=== PATIENT | female | born 1970 | race Caucasian/White ===

== ENCOUNTER 2023-07-08 11:45 | Emergency (ER) | payer OTHER, SELFPAY ==
[2023-07-08 11:52] VITALS: BP 138/66; PULSE 84; RESP 20; TEMP 37.6; O2SAT 96; BMI 22.0
[2023-07-08 12:32] LABS: Influenza Virus A Antigen Negative; Influenza Virus B Antigen Negative; Internal Control Within Normal Limits; SARS-CoV-2 Ag NEGATIVE (NEGATIVE)
[2023-07-08] MEDS: ONDANSETRON 4 MG RAPDIS TABLET SL (13:12)
[2023-07-08] MEDS: KETOROLAC TROMETHAMINE 30 MG/ML VIAL IM (13:12)
--- NOTE | 2023-07-08 13:13 | ED.GENADUL1 ---
HPI - General Adult General Chief complaint: Upper Respiratory Infection Stated complaint: SHORTNESS OF BREATH Time Seen by Provider: 07/08/23 11:57 Source: patient Mode of arrival: walk-in Limitations: no limitations History of Present Illness HPI narrative: Patient is a 51-year-old female who is presenting to the ER today with flulike symptoms since yesterday. Patient has nausea with no vomiting. Patient has mild headache, bilateral paracervical neck pain, no chest pain, mild shortness of breath. Patient does smoke. Nausea, no vomiting, no diarrhea, mild abdominal discomfort. Myalgia, arthralgia, and patient stated that her son came home sick from school yesterday as well. Patient is not working today, she does not need a work note. No other acute complaints. Patient is taking nothing for pain today. All systems are negative except as noted/marked. All systems reviewed and otherwise negative. Nurses note and vital signs reviewed and patient is not hypoxic. General: The patient appears well and in no apparent distress. Patient is resting comfortably on cart. Patient is not toxic, lethargic, or listless Skin: Warm, dry, no pallor noted. There is no rash noted. No petechiae, purpura. Head: Normocephalic, atraumatic; no midline tenderness to palpation, patient has mild paracervical soft tissue tenderness palpation, no meningeal signs or symptoms. Patient has full range of motion of cervical spine with minimal pain. Eye: Normal conjunctiva, no drainage, EOMI. PERRL Ears, Nose, Mouth, and Throat: oral mucosa is moist. Bilateral TM shows no erythema, perforation or bulging. Patient does have clear drainage to the posterior pharynx, mild cobblestoning noted. Nares patent. Mouth without vesicles. Cardiovascular: Regular Rate and Rhythm, no murmur, gallop, rub Respiratory: Patient is in no distress, no accessory muscle use, lungs are clear to auscultation, no wheezing, rales or rhonchi Back: non-tender, no CVA tenderness bilaterally to percussion. No CT LS midline pain GI: no tenderness to palpation, no masses appreciated. No rebound, guarding, or rigidity noted. No distention. No midepigastric tenderness to palpation, no peritoneal signs. benign abdomen. Musculoskeletal: Patient has full range of motion of all of the extremities, no motor, sensory, or focal neurological deficits Neurological: A&O x4, normal speech Psychiatric: Cooperative Related Data Home Medications Medication Instructions Recorded Confirmed aspirin 81 mg tablet,delayed 81 mg PO DAILY 07/08/23 07/08/23 release atorvastatin 40 mg tablet 40 mg PO DAILY 07/08/23 07/08/23 cholecalciferol (vit D3) 137.5 mcg 1 tab PO DAILY 07/08/23 07/08/23 (5,500 unit)-vit K2 200 mcg tablet (DosoKap) clopidogrel 75 mg tablet 75 mg PO DAILY 07/08/23 07/08/23 duloxetine 60 mg capsule,delayed 60 mg PO DAILY 07/08/23 07/08/23 release levothyroxine 88 mcg tablet 88 mcg PO DAILY 07/08/23 07/08/23 magnesium oxide 400 mg (241.3 mg 400 mg PO BID 07/08/23 07/08/23 magnesium) tablet nitroglycerin 0.4 mg sublingual 0.4 mg sublingual Q5M 07/08/23 07/08/23 tablet pregabalin 50 mg capsule 50 mg PO BID 07/08/23 07/08/23 trazodone 150 mg tablet 150 mg PO BEDTIME PRN insomnia 07/08/23 07/08/23 Previous Rx's Medication Instructions Recorded ondansetron 4 mg disintegrating 4 mg PO Q4H PRN nausea and 07/08/23 tablet vomiting 3 days #6 tabs Allergies Allergy/AdvReac Type Severity Reaction Status Date / Time Penicillins Allergy Severe Verified 07/08/23 11:56 Exam Constitutional Vital Signs, click to edit/add: Last Vital Signs Temp 99.7 F 07/08/23 11:52 Pulse 84 07/08/23 11:52 Resp 20 07/08/23 11:52 BP 138/66 07/08/23 11:52 Pulse Ox 96 07/08/23 11:52 O2 Del Method Room Air 07/08/23 11:52 Course Vital Signs Vital signs: Vital Signs Temperature 99.7 F 07/08/23 11:52 Pulse Rate 84 07/08/23 11:52 Respiratory Rate 20 07/08/23 11:52 Blood Pressure 138/66 07/08/23 11:52 Pulse Oximetry 96 07/08/23 11:52 Oxygen Delivery Method Room Air 02/28/24 11:52 Temperature 99.7 F 07/08/23 11:52 Pulse Rate 84 07/08/23 11:52 Respiratory Rate 20 07/08/23 11:52 Blood Pressure 138/66 07/08/23 11:52 Pulse Oximetry 96 07/08/23 11:52 Oxygen Delivery Method Room Air 07/08/23 11:52 Medical Decision Making MDM Narrative Medical decision making narrative: Education was done at bedside and the appropriate use of antibiotics. Patient says that she has a sinus infection, does not feel well, and believes that she needs antibiotics. Patient was educated on the viral process as well of infections. Influenza and COVID were negative. Patient was given a Zofran in the ER along with Toradol injection. Patient was sent with a prescription for Zofran. Patient is to follow-up with PCP if no improvement in next 7 to 10 days for reevaluation at that time. No indication for antibiotics. Education and symptomatic treatment was done. No questions at discharge Lab Data Labs: Lab Results 07/08/23 Range/Units 12:00 Influenza Type A Ag Negative Influenza Type B Ag Negative SARS-CoV-2 Ag (CV2AG) Negative (NEGATIVE) Discharge Plan Discharge Chief Complaint: Upper Respiratory Infection Clinical Impression: Sinus congestion, Flu-like symptoms Patient Disposition: Home, Self-Care Time of Disposition Decision: 13:00 Condition: Fair Prescriptions / Home Meds: New ondansetron 4 mg tablet,disintegrating 4 mg PO Q4H PRN (Reason: nausea and vomiting) 3 Days Qty: 6 0RF No Action aspirin 81 mg tablet,delayed release (DR/EC) 81 mg PO DAILY atorvastatin 40 mg tablet 40 mg PO DAILY DosoKap 137.5-200 mcg tablet 1 tab PO DAILY clopidogrel 75 mg tablet 75 mg PO DAILY duloxetine 60 mg capsule,delayed release(DR/EC) 60 mg PO DAILY levothyroxine 88 mcg tablet 88 mcg PO DAILY nitroglycerin 0.4 mg tablet, sublingual 0.4 mg sublingual Q5M pregabalin 50 mg capsule 50 mg PO BID trazodone 150 mg tablet 150 mg PO BEDTIME PRN (Reason: insomnia) magnesium oxide 400 mg (241.3 mg magnesium) tablet 400 mg PO BID Instructions: Influenza (ED), Cold Symptoms (ED) Additional Instructions: Increase fluids at home, Gatorade, Powerade, or water. Alternate using DayQuil, NyQuil, and Flonase. At Mucinex as well as needed. Alternate Tylenol and Motrin every 4 hours to help with fever control, body aches or joint pain. Use [id number] vitamin C, vitamin D3, and zinc to help fight infection and help with her immune system. Use Zofran as needed for nausea to help increase fluids at home Stand Alone Forms: Portal Instructions Referrals: MORENA TREJO [Primary Care Provider] - 1 week
== END 2023-07-08 13:20 | disposition home or self-care (01) ==
PROVIDERS: Emergency Provider Emergency Medicine; PCP Family Medicine
DX: R06.02 Shortness of breath (principal); R09.81 Nasal congestion; R11.0 Nausea; R51.9 Headache, unspecified; M54.2 Cervicalgia; F17.210 Nicotine dependence, cigarettes, uncomplicated; M79.10 Myalgia, unspecified site; M25.50 Pain in unspecified joint; Z79.82 Long term (current) use of aspirin; Z79.890 Hormone replacement therapy; Z79.899 Other long term (current) drug therapy; Z20.822 Contact with and (suspected) exposure to COVID-19
CPT/HCPCS: 87804; 87811; 96372; 99284

== ENCOUNTER 2023-08-14 15:37 | Emergency (ER) | payer OTHER, SELFPAY ==
[2023-08-14 15:40] VITALS: BP 150/70; PULSE 72; TEMP 37; O2SAT 97
[2023-08-14 15:47] VITALS: O2SAT 97
[2023-08-14] MEDS: KETOROLAC TROMETHAMINE 60 MG/2 ML VIAL IM (16:18)
[2023-08-14] MEDS: ORPHENADRINE 60 MG/ 2 ML VIAL IM (16:19)
--- NOTE | 2023-08-14 16:21 | ED_ITS ---
Documented by User: Kandis Langey 08/14/23 17:55 HPI HPI - Back Pain/Injury General Chief Complaint: Back Pain/Injury Stated Complaint: Lower Back Pain Time Seen by Provider: 08/14/23 15:43 Source: patient Mode of arrival: walk-in Limitations: no limitations History of Present Illness HPI Narrative: 52-year-old female presents here with chief complaint of lower lumbar pain. She denies any injury or trauma. She states she has bilateral tenderness but complains of some radiation down the right lower extremity. She is currently being treated for walking pneumonia and on erythromycin. She states she has been laying around more than usual because she has been ill. Patient has no pain on examination. She has no focal weakness. She denies any urinary sym ptoms. She denies any burning with urination she denies any loss of bowel or bladder function. Related Data Home Medications ?Medication ?Instructions ?Recorded ?Confirmed aspirin 81 mg tablet,delayed 81 mg PO DAILY 07/08/23 08/14/23 release atorvastatin 40 mg tablet 40 mg PO DAILY 07/08/23 08/14/23 cholecalciferol (vit D3) 137.5 mcg 1 tab PO DAILY 07/08/23 08/14/23 (5,500 unit)-vit K2 200 mcg tablet (DosoKap) clopidogrel 75 mg tablet 75 mg PO DAILY 07/08/23 08/14/23 duloxetine 60 mg capsule,delayed 60 mg PO DAILY 07/08/23 08/14/23 release levothyroxine 88 mcg tablet 88 mcg PO DAILY 07/08/23 08/14/23 magnesium oxide 400 mg (241.3 mg 400 mg PO BID 07/08/23 08/14/23 magnesium) tablet nitroglycerin 0.4 mg sublingual 0.4 mg sublingual Q5M 07/08/23 08/14/23 tablet pregabalin 50 mg capsule 50 mg PO BID 07/08/23 08/14/23 trazodone 150 mg tablet 150 mg PO BEDTIME PRN insomnia 07/08/23 08/14/23 Previous Rx's ?Medication ?Instructions ?Recorded ondansetron 4 mg disintegrating 4 mg PO Q4H PRN nausea and 07/08/23 tablet vomiting 3 days #6 tabs albuterol sulfate 90 mcg/actuation 2 inh inhalation Q8H PRN shortness 04/05/24 aerosol inhaler of breath or wheezing #8.5 grams methocarbamol 500 mg tablet 500 mg PO TID PRN muscle spasm #10 08/14/23 tabs Allergies Allergy/AdvReac Type Severity Reaction Status Date / Time Penicillins Allergy Severe Verified 07/08/23 11:56 Opioid HPI Opioid Management Most Recent Opioid Data: Last Pain Scale 2 08/14/23 16:47 Last ED Pain Assessment 08/14/23 16:47 Last MAR Pain Assessment 08/14/23 16:18 Review of Systems ROS Narrative All Systems are negative except as noted/marked.All systems reviewed and otherwise negative Exam Narrative Exam Narrative: Nurses note and vital signs reviewed and patient is not hypoxic. General: The patient appears well and in no apparent distress. Patient is resting comfortably on cart. Skin: Warm, dry, no pallor noted. There is no rash noted. Head: Normocephalic, atraumatic Eye: Normal conjunctiva, no drainage, EOMI. PERRL Ears, Nose, Mouth, and Throat: oral mucosa is moist. Nares patent. Mouth without vesicles. Ear canals patent. Tm's without Erythema Cardiovascular: Regular Rate and Rhythm Respiratory: Scattered expiratory wheezing, rhonchi cleared with cough,Patient is in no distress, no accessory muscle use Back: non-tender, no CVA tenderness bilaterally to percussion. GI: Normal bowel sounds, no tenderness to palpation, no masses appreciated. No rebound, guarding, or rigidity noted. Musculoskeletal: The patient has no evidence of calf tenderness, no pitting edema, symmetrical pulses noted bilaterally Neurological: A&O x4, normal speech Psychiatric: Cooperative Constitutional Vital Signs, click to edit/add: Last Vital Signs Temp 98.6 F 08/14/23 15:40 Pulse 67 08/14/23 18:07 Resp 16 08/14/23 18:07 BP 153/69 H 08/14/23 18:07 Pulse Ox 96 08/14/23 18:07 O2 Del Method Room Air 08/14/23 18:07 Course Vital Signs Vital signs: Vital Signs Temperature 98.6 F 08/14/23 15:40 Pulse Rate 72 08/14/23 15:40 Respiratory Rate 18 08/14/23 15:40 Blood Pressure 150/70 H 08/14/23 15:40 Pulse Oximetry 97 08/14/23 15:40 Temperature 98.6 F 08/14/23 15:40 Pulse Rate 67 08/14/23 18:07 Respiratory Rate 16 08/14/23 18:07 Blood Pressure 153/69 H 08/14/23 18:07 Pulse Oximetry 96 08/14/23 18:07 Oxygen Delivery Method Room Air 08/14/23 18:07 MDM - Back Pain/Injury MDM Narrative Medical decision making narrative: Female presents here with chief complaint of lower lumbar pain. She states she has been at home with walking pneumonia and taking antibiotics been laying around more than usual. No other injury or trauma. She feels a soreness and stiffness in lower back. Medicated here with Toradol and Norflex states she feels much better. Patient also has a history of smoking and lung sounds had scattered crackles and rhonchi cleared with coughing. She was medicated here with a DuoNeb breathing treatment states she feels much better. Patient is recently run out of her albuterol inhaler we will provide her a new inhaler. She will be discharged home with a prescription for Well. Patient states she does feel better and will be discharged Differential Diagnosis Differential diagnosis: Likely lumbar radiculopathy and strain of lumbar region Medical Records Attestation: I reviewed the patient's medical records. Lab Data Attestation: I reviewed the patient's lab results. Labs: Lab Results 08/14/23 Range/Units 16:48 Urine Color Lt. yellow (YELLOW) Urine Clarity Clear (CLEAR) Urine pH 6.0 (5.0-9.0) Ur Specific [place] <=1.005 A (1.005-1.025) Urine Protein Negative (NEG/TRACE) mg/dL Urine Glucose (UA) Negative (NEGATIVE) mg/dL Urine Ketones Negative (NEGATIVE) mg/dL Urine Occult Blood Negative (NEGATIVE) Urine Nitrite Negative (NEGATIVE) Urine Bilirubin Negative (NEGATIVE) Urine Urobilinogen 0.2 (0.2-1.0) EU/dL Ur Leukocyte Esterase Negative (NEGATIVE) Urine RBC None seen (0-2) #/HPF Urine WBC None seen (NONE SEEN) #/HPF Ur Squamous Epith Cells Few A (NONE/RARE) #/LPF Urine Crystals None seen (None Seen) #/HPF Urine Bacteria Trace A (NONE SEEN) #/HPF Urine Casts None seen (NONE SEEN) #/LPF Urine Mucus None seen (NONE SEEN) Discharge Plan Discharge Stand Alone Forms: Portal Instructions Chief Complaint: Back Pain/Injury Clinical Impression: Strain of lumbar region, Wheezing Patient Disposition: Home, Self-Care Time of Disposition Decision: 17:51 Condition: Good Prescriptions / Home Meds: New methocarbamol 500 mg tablet 500 mg PO TID PRN (Reason: muscle spasm) Qty: 10 0RF albuterol sulfate 90 mcg/actuation HFA aerosol inhaler 2 inh inhalation Q8H PRN (Reason: shortness of breath or wheezing) Qty: 8.5 0RF No Action aspirin 81 mg tablet,delayed release (DR/EC) 81 mg PO DAILY atorvastatin 40 mg tablet 40 mg PO DAILY DosoKap 137.5-200 mcg tablet 1 tab PO DAILY clopidogrel 75 mg tablet 75 mg PO DAILY duloxetine 60 mg capsule,delayed release(DR/EC) 60 mg PO DAILY levothyroxine 88 mcg tablet 88 mcg PO DAILY nitroglycerin 0.4 mg tablet, sublingual 0.4 mg sublingual Q5M pregabalin 50 mg capsule 50 mg PO BID trazodone 150 mg tablet 150 mg PO BEDTIME PRN (Reason: insomnia) magnesium oxide 400 mg (241.3 mg magnesium) tablet 400 mg PO BID ondansetron 4 mg tablet,disintegrating 4 mg PO Q4H PRN (Reason: nausea and vomiting) 3 Days Qty: 6 0RF Print Language: Korean Instructions: Low Back Strain (ED), Lower Back Exercises (ED), Wheezing (ED) Referrals: MORENA TREJO [Primary Care Provider] - 1 week Discharge Date/Time: 08/14/23 18:08 Documented by User: Atul Phelps MD 08/14/23 21:52 HPI HPI - Back Pain/Injury General Chief Complaint: Back Pain/Injury Stated Complaint: Lower Back Pain Time Seen by Provider: 08/14/23 15:43 Related Data Home Medications ?Medication ?Instructions ?Recorded ?Confirmed aspirin 81 mg tablet,delayed 81 mg PO DAILY 07/08/23 08/14/23 release atorvastatin 40 mg tablet 40 mg PO DAILY 07/08/23 08/14/23 cholecalciferol (vit D3) 137.5 mcg 1 tab PO DAILY 07/08/23 08/14/23 (5,500 unit)-vit K2 200 mcg tablet (DosoKap) clopidogrel 75 mg tablet 75 mg PO DAILY 07/08/23 08/14/23 duloxetine 60 mg capsule,delayed 60 mg PO DAILY 07/08/23 08/14/23 release levothyroxine 88 mcg tablet 88 mcg PO DAILY 07/08/23 08/14/23 magnesium oxide 400 mg (241.3 mg 400 mg PO BID 07/08/23 08/14/23 magnesium) tablet nitroglycerin 0.4 mg sublingual 0.4 mg sublingual Q5M 07/08/23 08/14/23 tablet pregabalin 50 mg capsule 50 mg PO BID 07/08/23 08/14/23 trazodone 150 mg tablet 150 mg PO BEDTIME PRN insomnia 07/08/23 08/14/23 Previous Rx's ?Medication ?Instructions ?Recorded ondansetron 4 mg disintegrating 4 mg PO Q4H PRN nausea and 07/08/23 tablet vomiting 3 days #6 tabs albuterol sulfate 90 mcg/actuation 2 inh inhalation Q8H PRN shortness 08/14/23 aerosol inhaler of breath or wheezing #8.5 grams methocarbamol 500 mg tablet 500 mg PO TID PRN muscle spasm #10 08/14/23 tabs Allergies Allergy/AdvReac Type Severity Reaction Status Date / Time Penicillins Allergy Severe Verified 07/08/23 11:56 Opioid HPI Opioid Management Most Recent Opioid Data: Last Pain Scale 2 08/14/23 16:47 Last ED Pain Assessment 08/14/23 16:47 Last MAR Pain Assessment 08/14/23 16:18 Exam Constitutional Vital Signs, click to edit/add: Last Vital Signs Temp 98.6 F 08/14/23 15:40 Pulse 67 08/14/23 18:07 Resp 16 08/14/23 18:07 BP 153/69 H 08/14/23 18:07 Pulse Ox 96 08/14/23 18:07 O2 Del Method Room Air 08/14/23 18:07 Course Vital Signs Vital signs: Vital Signs Temperature 98.6 F 08/14/23 15:40 Pulse Rate 72 08/14/23 15:40 Respiratory Rate 18 08/14/23 15:40 Blood Pressure 150/70 H 08/14/23 15:40 Pulse Oximetry 97 08/14/23 15:40 Temperature 98.6 F 08/14/23 15:40 Pulse Rate 67 08/14/23 18:07 Respiratory Rate 16 08/14/23 18:07 Blood Pressure 153/69 H 08/14/23 18:07 Pulse Oximetry 96 08/14/23 18:07 Oxygen Delivery Method Room Air 08/14/23 18:07 MDM - Back Pain/Injury MDM Narrative Medical decision making narrative: Female presents here with chief complaint of lower lumbar pain. She states she has been at home with walking pneumonia and taking antibiotics been laying around more than usual. No other injury or trauma. She feels a soreness and stiffness in lower back. Medicated here with Toradol and Norflex states she feels much better. Patient also has a history of smoking and lung sounds had scattered crackles and rhonchi cleared with coughing. She was medicated here with a DuoNeb breathing treatment states she feels much better. Patient is recently run out of her albuterol inhaler we will provide her a new inhaler. She will be discharged home with a prescription for Well. Patient states she does feel better and will be discharged I, Dr Phelps, have reviewed the above progress note and course of action in the ER; agree with the above. I have gone over history and physical, and discussed disposition and treatment plan with the patient. Lab Data Labs: Lab Results 08/14/23 Range/Units 16:48 Urine Color Lt. yellow (YELLOW) Urine Clarity Clear (CLEAR) Urine pH 6.0 (5.0-9.0) Ur Specific [place] <=1.005 A (1.005-1.025) Urine Protein Negative (NEG/TRACE) mg/dL Urine Glucose (UA) Negative (NEGATIVE) mg/dL Urine Ketones Negative (NEGATIVE) mg/dL Urine Occult Blood Negative (NEGATIVE) Urine Nitrite Negative (NEGATIVE) Urine Bilirubin Negative (NEGATIVE) Urine Urobilinogen 0.2 (0.2-1.0) EU/dL Ur Leukocyte Esterase Negative (NEGATIVE) Urine RBC None seen (0-2) #/HPF Urine WBC None seen (NONE SEEN) #/HPF Ur Squamous Epith Cells Few A (NONE/RARE) #/LPF Urine Crystals None seen (None Seen) #/HPF Urine Bacteria Trace A (NONE SEEN) #/HPF Urine Casts None seen (NONE SEEN) #/LPF Urine Mucus None seen (NONE SEEN) Discharge Plan Discharge Stand Alone Forms: Portal Instructions Chief Complaint: Back Pain/Injury Clinical Impression: Strain of lumbar region, Wheezing Patient Disposition: Home, Self-Care Time of Disposition Decision: 17:51 Condition: Good Prescriptions / Home Meds: New methocarbamol 500 mg tablet 500 mg PO TID PRN (Reason: muscle spasm) Qty: 10 0RF albuterol sulfate 90 mcg/actuation HFA aerosol inhaler 2 inh inhalation Q8H PRN (Reason: shortness of breath or wheezing) Qty: 8.5 0RF No Action aspirin 81 mg tablet,delayed release (DR/EC) 81 mg PO DAILY atorvastatin 40 mg tablet 40 mg PO DAILY DosoKap 137.5-200 mcg tablet 1 tab PO DAILY clopidogrel 75 mg tablet 75 mg PO DAILY duloxetine 60 mg capsule,delayed release(DR/EC) 60 mg PO DAILY levothyroxine 88 mcg tablet 88 mcg PO DAILY nitroglycerin 0.4 mg tablet, sublingual 0.4 mg sublingual Q5M pregabalin 50 mg capsule 50 mg PO BID trazodone 150 mg tablet 150 mg PO BEDTIME PRN (Reason: insomnia) magnesium oxide 400 mg (241.3 mg magnesium) tablet 400 mg PO BID ondansetron 4 mg tablet,disintegrating 4 mg PO Q4H PRN (Reason: nausea and vomiting) 3 Days Qty: 6 0RF Print Language: Korean Instructions: Low Back Strain (ED), Lower Back Exercises (ED), Wheezing (ED) Referrals: MORENA TREJO [Primary Care Provider] - 1 week Discharge Date/Time: 08/14/23 18:08
[2023-08-14] MEDS: IPRATROPIUM/ALBUTEROL SULFATE 3 ML AMPUL.NEB IH (16:25)
[2023-08-14 16:26] VITALS: PULSE 89; O2SAT 98
[2023-08-14 17:09] LABS: Bilirubin Urine NEGATIVE (NEGATIVE); Blood Urine NEGATIVE (NEGATIVE); Clarity Urine CLEAR (CLEAR); Color Urine LT. YELLOW (YELLOW); Glucose Urine UA NEGATIVE (NEGATIVE); Ketones Urine NEGATIVE (NEGATIVE); Leukocyte Esterase Urine NEGATIVE (NEGATIVE); Nitrite Urine NEGATIVE (NEGATIVE); Protein Urine NEGATIVE (NEG/TRACE); Specific Gravity Urine <=1.005 (1.005-1.025); Urobilinogen Urine 0.2 EU/dL (0.2-1.0)
[2023-08-14 17:35] LABS: Bacteria Urine TRACE #/HPF (NONE SEEN); Cast Seen? NONE SEEN #/LPF (NONE SEEN); Crystals Seen? None Seen #/HPF (None Seen); Mucus Urine NONE SEEN (NONE SEEN); RBC Urine NONE SEEN #/HPF (0-2); Squamous Epithelial Cell Urine FEW #/LPF (NONE/RARE); WBC Urine NONE SEEN #/HPF (NONE SEEN)
[2023-08-14 18:07] VITALS: BP 153/69; PULSE 67; O2SAT 96
== END 2023-08-14 18:08 | disposition home or self-care (01) ==
PROVIDERS: Physician Assistant; Emergency Provider Emergency Medicine; PCP Family Medicine
DX: S39.012A Strain of muscle, fascia and tendon of lower back, initial encounter (principal); R06.2 Wheezing; Z79.82 Long term (current) use of aspirin; Z79.899 Other long term (current) drug therapy; Z79.890 Hormone replacement therapy
CPT/HCPCS: 81001; 94640; 96372; 99284

== ENCOUNTER 2025-02-06 10:08 | Outpatient (OUT) | payer OTHER, SELFPAY ==
--- OUTSIDE RECORDS SUMMARY | 2024-03-07 12:30 | XMS_ITS ---
Author Organization [facility] vices Address [address] [place] [id number] Care Team Providers Care Insurance Rater Name Role Phone Josiseth Sheila Unavailable [phone] REASON FOR VISIT [employer] Exam Encounters Encounter Location Date Provider Diagnosis [facility] [address] [place], [place] [id number] 03/07/2024 Sheila Barnhart Plan Of Treatment No Information Progress Notes * Sharon ABELeDOB: 0 (54 yo F)Acc No.[id number]:03/07/2024 Patient: Eleonora LEMUS Provider: Isaura Barnhart DMD :1970 A ge:53 Y S ex:Female Date:03/07/2024 Address:[address] [place], [place] [id number] Subjective: * Chief Complaints: * 1 . [employer] Exam. * Medical History: Objective: * Vitals: Assessment: Plan: * Treatment: * Billing Information: * Visit Code: * Procedure Codes: * Electronic signature of Liliana Barnhart DMD on 02/06/2025 at 10:11 AM EDT Sign off status: Pending * Provider: Isaura Barnhart DMD Date: 1 Generated for Tanna martinez/Savanna/Serafinitting on: 0 02/06/2025 10:11 AM EDT
--- OUTSIDE RECORDS SUMMARY | 2025-02-06 10:11 | XMS_ITS | Encounter Summary ---
Author Organization [facility] Address [address] [place] [address] Phone Care Team Providers Care Second Hand Name Role Phone Levi Arguello DO Primary Care Provider [phone] Eleonora Chung MD Unavailable Encounter Details Date Type Department Care Team (Late st Contact Info) Description 04/08/2024 Scanned Document [facility] [address] [place] [id number] Scanning, Generic Provider Social History Tobacco Use Types Packs/Day Years Used Date Smoking Tobacco: Every Day Cigarettes Smokeless Tobacco: Never Comments:She cannot tolerate Chantix. She does not believe that NicoDerm patch will help her abstain from cigarettes, she looks at it as a crutch, and I can see where she says that. We talked about hypnosis and acupuncture, and she will check into those options. Alcohol Use Standard Drinks/Week Comments Never 0 (1 standard drink = 0.6 oz pur e alcohol) PHQ-2 Answer Date Recorded Patient Health Questionnaire-2 Score 6 12/19/2021 Comments Unknown Sex and Gender Information Value Date Recorded Sex Assigned at Not on file Legal Sex Female 1:18 PM EST Gender Identity Female 07/05/2024 9:45 AM EST Sexual Orientation Straight 07/05/2024 9: 45 AM EST documented as of this encounter Plan of Treatment Not on file documented as of this encounter Visit Diagnoses Not on filedocumented in this encounter Additional Health Concerns Assessment Noted Time PHQ-9 Depression Total Score: 19 022 10:16 AM EDT documented as of this encounter Care Teams Second Hand Relationship Specialty Start Date End Date Levi Arguello DO [address] [place] [address] PCP - General Family Medicine 06/04/23 Eleonora Chung MD [address] [address] PCP - Constanza BARON PCP 08/09/24 documented as of this encounter
--- OUTSIDE RECORDS SUMMARY | 2025-02-06 10:11 | XMS_ITS | Encounter Summary ---
Author Organization [facility] Address [address] [place] [address] Phone Care Team Providers Care Utility Inspector Name Role Phone Levi Arguello Primary Care Provider [phone] Eleonora Chung MD Unavailable Encounter Details Date Type Department Care Team (Late st Contact Info) Description 12/11/2024 Patient Risk Score ACO Care Management [address] [place] [address] Social History Tobacco Use Types Packs/Day Years [...] documented as of this encounter Care Teams Utility Inspector Relationship Specialty Start Date End Date Levi Arguello DO [address] [place] [address] PCP - General Family Medicine 06/04/23 Eleonora Chung MD [address] [address] PCP - Constanza BARON PCP 08/09/24 documented as of this encounter
--- OUTSIDE RECORDS SUMMARY | 2025-02-06 10:11 | XMS_ITS | Encounter Summary ---
Author Organization [facility] Address [address] [place] [address] Phone Care Team Providers Care Yarder Name Role Phone Levi Arguello DO Primary Care Provider [phone] Eelonora Chung MD Unavailable Eleonora Chung MD Unavailable Encounter Details Date Type Department Care Team (Late st Contact Info) Description 11/12/2023 Patient Risk Score ACO Care Management [address] [place] [address] Social History Tobacco Use Types [...] documented as of this encounter Care Teams Yarder Relationship Specialty Start [place] [address] [place] [address] PCP - General Family Medicine 06/04/23 Eleonora Chung MD [address] [address] PCP - DENTAL RESIDENT Medicaid PCP 11/09/23 4 Eleonora Chung MD [address] [address] PCP - Krissoendy ACO PCP 08/09/24 documented as of this encounter
--- OUTSIDE RECORDS SUMMARY | 2025-02-06 10:11 | XMS_ITS | Encounter Summary ---
Author Organization [facility] Address [address] [place] [address] Phone Care Team Providers Care Rotary Machine Operator Name Role Phone Levi Arguello DO Primary Care Provider [phone] Eleonora Chung MD Unavailable Eleonora Chung MD Unavailable Eleonora Chung MD Unavailable Encounter Details Date Type Department Care Team (Late st Contact Info) Description 09/12/2023 Patient Risk Score ACO Care Management [address] [place] [address] Social History Tobacco Use Types [...] documented as of this encounter Care Teams Rotary Machine Operator Relationship Specialty Start Date End Date Levi Arguello DO [address] [place] [address] PCP - General Family Medicine 06/04/23 Eleonora Chung MD [address] [place] [address] PCP - [facility] PCP 05/11/2310/08 Eleonora Chung MD [address] [place] [address] [facility] - [facility] Medicaid PCP 11/09/23 4 Eleonora Chung MD [address] [place] [address] PCP - [place] PCP 08/09/24 documented as of this encounter
--- OUTSIDE RECORDS SUMMARY | 2025-02-06 10:11 | XMS_ITS | Clinical Summary ---
Author Organization [facility] Healthcare Address [address] [place] [address] Care Team Providers Care Cable Installation Manager Name Role Phone Levi Arguello MD Primary Care Provider [phone] Allergies Active Allergy Reactions Criticality Noted Date Comments Penicillins Unknown 10/12/2017 Other Reaction(s): Rash As a child Medications atorvastatin (Lipitor) 40 MG tablet Take 40 mg by mouth in the morning. 06/06/2024 06/06/19 26 Active aspirin 81 MG EC tablet Take 81 mg by mouth in the morning. 09/10/2023 Active cetirizine (ZyrTEC) 10 MG tablet Daily as needed for allergy symptoms 04/08/2024 Active clopidogrel (Plavix) 75 MG tablet Daily 04/08/2024 Active DULoxetine (Cymbalta) [address] capsule Take 60 mg by mouth in the morning. 04/08/2024 Active levothyroxine (Synthroid, Levoxyl) 88 MCG tablet Take 88 mcg by mouth in the morning. Active magnesium oxide (Mag-Ox) 400 MG tablet Take 400 mg by mouth in the morning and 400 mg in the evening. 06/06/2024 06/06/19 26 Active nitroglycerin (Nitrostat) 0.[address] 0.4 mg under the tongue 06/06/2024 06/06/19 26 Active valACYclovir (Valtrex) 500 MG tablet 06/06/2024 Active Active Problems Problem Noted Date Diagnosed Date Acute right otitis media 06/20/2024 Anxiety 06/20/2024 Bronchitis 06/20/2024 Carpal tunnel syndrome 06/20/2024 Chest pain 06/20/2024 Coronary angioplasty status 06/20/2024 Cubital tunnel syndrome on right 06/20/2024 Depression 06/20/2024 Ear pain 06/20/2024 Eustachian tube dysfunction 06/20/2024 Heart disease 06/20/2024 Asthma 06/20/2024 Lumbar pain 06/20/2024 Nausea 06/20/2024 Osteoarthritis 06/20/2024 Racing heart beat 06/20/2024 Sacroiliitis 06/20/2024 Sciatica 06/20/2024 Sinusitis 06/20/2024 Unstable angina 06/20/2024 Thyroid disease 06/20/2024 BMI 24.0-24.9, adult 06/06/2024 Chronotropic incompetence 06/06/2024 Encounter to discuss test results 06/04/2023 Palpitations 04/06/2023 Current smoker 04/06/2023 Arteriosclerosis of coronary artery 03/17/2023 COVID-19 03/17/2023 History of PTCA 03/17/2023 Hyperlipidemia 03/17/2023 SOB (shortness of breath) on exertion 03/17/2023 Family History Medical History Relation Name Comments Cancer Father Heart failure Father Hypertension Father Relation Name Status Comments Father Social History Tobacco Use Types Packs/Day Years Used Date Smoking Tobacco: Every Day Cigarettes Passive Smoke Exposure: Current Smokeless Tobacco: Never Tobacco Cessation:Ready to Q uit: Not Asked; Counseling Given: Not Answered Alcohol Use Standard Drinks/Week Comments Not Currently 0 (1 standard drink = 0.6 oz pur e alcohol) Comments Unknown Sex and Gender Information Value Date Recorded Sex Assigned at Not on file Legal Sex Female 7:11 PM EDT Gender Identity Not on file Sexual Orientation Not on file Last Filed Vital Signs Vital Sign Reading Time Taken Comments Blood Pressure 125/73 06/21/2024 10:26 AM EST Pulse 82 06/21/2024 10:26 AM EST Temperature - - Respiratory Rate - - Oxygen Saturation - - Inhaled Oxygen Concentration - - Weight 74.8 kg (165 lb) 06/21/2024 10:26 AM EST Height 172.7 cm (5' 8 ) 06/21/2024 10:26 AM EST Body Mass Index 25.09 06/21/2024 10:26 AM EST Plan of Treatment Health Maintenance Due Date Last Done Comments CT Colonography 1969 Colonoscopy 1969 Colorectal Cancer Screening 1969 FIT-DNA 1969 FIT 1969 FOBT 1969 Sigmoidoscopy 1969 Pap Smear 1990 Cervical Cancer Screening 12/04/1999 HPV/Cotest 12/04/1999 Mammogram 2009 Influenza Vaccine (#1) 2025 04/15/2024 Insurance [employer] Care Teams Cable Installation Manager Relationship Specialty Start Date End Date Levi Arguello MD PCP - General Family Medicine 06/10/24
--- OUTSIDE RECORDS SUMMARY | 2025-02-06 10:11 | XMS_ITS | Encounter Summary ---
Author Organization [facility] Address [address] [place] [address] Phone Care Team Providers Care Lamination Assembler Name Role Phone Levi Arguello DO Primary Care Provider [phone] Eleonora Chung MD Unavailable Levi Arguello DO Primary Care Provider [phone] Eleonora Chung MD Unavailable Eleonora Chung MD Unavailable Eleonora Chung MD Unavailable Encounter Details Date Type Department Care Team (Late st Contact Info) Description 07/17/2021 Orders Only [facility] [address] [place] [address] Conversion, Onbase Social History Tobacco Use Types Packs/Day Years Used Date Smoking Tobacco: Never Assessed Comments Unknown Sex and Gender Information Value Date Recorded Sex Assigned at Not on file Legal Sex Female 1:18 PM EST Gender Identity Female 07/05/2024 9:45 AM EST Sexual Orientation Straight 07/05/2024 9: 45 AM EST documented as of this encounter Plan of Treatment Scheduled Orders Name Type Priority Associated Diagnoses Orde r Schedule OUTSIDE LAB SCAN Lab Ordered: 07/17/2021 OUTSIDE LAB SCAN Lab Ordered: 07/17/2021 documented as of this encounter Visit Diagnoses Not on filedocumented in this encounter Care Teams Lamination Assembler Relationship Specialty Start Date End Date Levi Arguello DO PCP - General 05/11/99 06/03/23 Eleonora Chung MD [address] [place] [id number] PCP - [facility] Medicaid PCP 11/08/22 3 Levi Arguello DO [address] [place] [address] PCP - General Family Medicine 06/04/23 Eleonora Chung MD [address] [place] [address] PCP - [facility] PCP 05/11/2310/08 Eleonora Chung MD [address] [place] [address] PCP - [facility] Medicaid PCP 11/09/23 4 Eleonora Chung MD [address] [place] [address] PCP - [facility] PCP 08/09/24 documented as of this encounter
--- OUTSIDE RECORDS SUMMARY | 2025-02-06 10:11 | XMS_ITS | Encounter Summary ---
Author Organization [facility] Address [address] [place] [address] Phone Care Team Providers Care Materials Analyst Name Role Phone Levi Arguello Primary Care Provider [phone] Eleonora Chung MD Unavailable Encounter Details Date Type Department Care Team (Late st Contact Info) Description 11/11/2024 Patient Risk Score ACO Care Management [address] [place] [address] Social History Tobacco Use Types [...] documented as of this encounter Care Teams Materials Analyst Relationship Specialty Start Date End Date Levi Arguello DO [address] [place] [address] PCP - General Family Medicine 06/04/23 Eleonora Chung MD [address] [address] PCP - [facility] PCP 08/09/24 documented as of this encounter
--- OUTSIDE RECORDS SUMMARY | 2025-02-06 10:11 | XMS_ITS | Encounter Summary ---
Author Organization [facility] Address [address] [place] [address] Phone Care Team Providers Care Health Information Specialist Name Role Phone Levi Arguello DO Primary Care Provider [phone] Eleonora Chung MD Unavailable Eleonora Chung MD Unavailable Encounter Details Date Type Department Care Team (Late st Contact Info) Description 12/13/2023 Patient Risk Score ACO Care Management [address] [place] [address] Social History Tobacco Use Types [...] documented as of this encounter Care Teams Health Information Specialist Relationship Specialty [place] [address] [place] [address] PCP - General Family Medicine 06/04/23 Eleonora Chung MD [address] [address] PCP - [facility] Medicaid PCP 11/09/23 4 Eleonora Chung MD [address] [address] PCP - [facility] PCP 08/09/24 documented as of this encounter
--- OUTSIDE RECORDS SUMMARY | 2025-02-06 10:11 | XMS_ITS | Encounter Summary ---
Author Organization [facility] Address [address] [place] [address] Phone Care Team Providers Care Social Media Marketer Name Role Phone Levi Arguello DO Primary Care Provider [phone] JosLevi DO Primary Care Provider [phone] Eleonora Chung MD Unavailable Eleonora Chung MD Unavailable Eleonora Chung MD Unavailable Encounter Details Date Type Department Care Team (Late st Contact Info) Description 06/03/2023 Scanned Document [facility] [address] [place] [address] Scanning, Generic Provider Social History Tobacco Use Types Packs/Day Years Used Date Smoking Tobacco: Every Day Cigarettes Smokeless Tobacco: Never Alcohol Use Standard Drinks/Week Comments Never 0 (1 standard drink = 0.6 oz pur e alcohol) PHQ-2 Answer Date Recorded Patient Health Questionnaire-2 Score 6 12/19/2021 Comments Unknown Sex and Gender Information Value Date Recorded Sex Assigned at Not on file Legal Sex Female 1:18 PM EST Gender Identity Female 07/05/2024 9:45 AM EST Sexual Orientation Straight 07/05/2024 9: 45 AM EST COVID-19 Exposure Response Date Recorded In the last 10 days, have yo u been in contact with someone who was confirmed or suspected to have Coronavirus/COVID-19? No / Unsure 06/04/2023 10:03 AM EST documented as of this encounter Functional Status * Question Answer Date of Assessment Author BP 150/92 06/04/2023 10:40 AM EST Neealm Victoria, SHOE WORKER Pulse 76 06/04/2023 10:13 AM Rex Calderón MA * Communicable Disease Screening Question Answer Date of Assessment Author Do you have any of the following new or worsening symptoms? None of these 06/04/2023 10:03 AM Koki Ramirez documented as of this encounter Plan of Treatment Not on file documented as of this encounter Visit Diagnoses Not on filedocumented in this encounter Additional Health Concerns Assessment Noted Time PHQ-9 Depression Total Score: 19 022 10:16 AM EDT documented as of this encounter Care Teams Social Media Marketer Relationship Specialty Start Date End Date Levi Arguello DO PCP - General 05/11/99 06/03/23 Levi Arguello DO [address] [place] [address] PCP - General Family Medicine 06/04/23 Eleonora Chung MD [address] [place] [address] [facility] - [facility] PCP 05/11/2310/08 Eleonora Chung MD [address] [place] [address] PCP - [facility] Medicaid PCP 11/09/23 4 Eleonora Chung MD [address] [address] PCP - [facility] PCP 08/09/24 documented as of this encounter
--- OUTSIDE RECORDS SUMMARY | 2025-02-06 10:11 | XMS_ITS | Encounter Summary ---
Author Organization [facility] Address [address] [place] [address] Phone Care Team Providers Care Alcoholic Counselor Name Role Phone Levi Arguello Primary Care Provider [phone] Eleonora Chung MD Unavailable Encounter Details Date Type Department Care Team (Late st Contact Info) Description 01/12/2025 Patient Risk Score ACO Care Management [address] [place] [address] Social History Tobacco Use Types [...] documented as of this encounter Care Teams Alcoholic Counselor Relationship Specialty Start Date End Date Levi Arguello DO [address] [place] [address] PCP - General Family Medicine 06/04/23 Eleonora Chung MD [address] [address] PCP - [facility] PCP 08/09/24 documented as of this encounter
--- OUTSIDE RECORDS SUMMARY | 2025-02-06 10:11 | XMS_ITS | Encounter Summary ---
Author Organization [facility] Address [address] [place] [address] Phone Care Team Providers Care Waste Examiner Name Role Phone Levi Arguello DO Primary Care Provider [phone] Eleonora Chung MD Unavailable Encounter Details Date Type Department Care Team (Late st Contact Info) Description 04/07/2024 Scanned Document [facility] [address] [place] [id number] Scanning, Generic Provider Social History Tobacco Use [...] on file documented as of this encounter Procedures Procedure Name Priority Date/Time Associated Diagnosis Comments OUTSIDE IMAGING SCAN 04/07/2024 documented in this encounter Results * OUTSIDE IMAGING SCAN (04/07/2024) Anatomical Region Laterality Modality Other Narrative 04/07/2024 Ordered by an unspecified provider. us Generic Provider Scanning OUTSIDE SCAN Final Result documented in this encounter Visit Diagnoses Not on filedocumented in this encounter Additional Health Concerns Assessment Noted Time PHQ-9 Depression Total Score: 19 022 10:16 AM EDT documented as of this encounter Care Teams Waste Examiner Relationship Specialty Start Date End Date Levi Arguello DO [address] [place] [address] PCP - General Family Medicine 06/04/23 Eleonora Chung MD [address] [place] [address] PCP - [facility] PCP 08/09/24 documented as of this encounter
--- OUTSIDE RECORDS SUMMARY | 2025-02-06 10:11 | XMS_ITS | Encounter Summary ---
Author Organization [facility] Address [address] [place] [address] Phone Care Team Providers Care Pool Coordinator Name Role Phone Levi Arguello DO Primary Care Provider [phone] Levi Arguello DO Primary Care Provider [phone] Eleonora Chung MD Unavailable Eleonora Chung MD Unavailable Eleonora Chung MD Unavailable Encounter Details Date Type Department Care Team (Late st Contact Info) Description 02/10/2023 Patient Risk Score ACO Care Management [address] [place] [address] Social History Tobacco Use Types Packs/Day Years Used Date Smoking Tobacco: Never Assessed PHQ-2 Answer Date Recorded Patient Health Questionnaire-2 [...] documented as of this encounter Care Teams Pool Coordinator Relationship Specialty Start Date End Date Levi Arguello DO PCP - General 05/11/99 06/03/23 Levi Arguello DO [address] [place] [address] PCP - General Family Medicine 06/04/23 Eleonora Chung MD [address] [place] [address] PCP - [facility] PCP 05/11/2310/08 Eleonora Chung MD [address] [place] [address] PCP - [facility] Medicaid PCP 11/09/2302/07/ 4 Eleonora Chung MD [address] [place] [address] PCP - [facility] PCP 08/09/24 documented as of this encounter
--- OUTSIDE RECORDS SUMMARY | 2025-02-06 10:11 | XMS_ITS | Encounter Summary ---
Author Organization [facility] Address [address] [place] [address] Phone Care Team Providers Care Liquid Natural Gas Plant Operator Name Role Phone Levi Arguello Primary Care Provider [phone] Eleonora Chung MD Unavailable Encounter Details Date Type Department Care Team (Late st Contact Info) Description 02/11/2024 Patient Risk Score ACO Care Management [address] [place] [address] Social History Tobacco Use Types [...] documented as of this encounter Care Teams Liquid Natural Gas Plant Operator Relationship Specialty Start Date End Date Levi Arguello DO [address] [place] [address] PCP - General Family Medicine 06/04/23 Eleonora Chung MD [address] [address] PCP - [facility] PCP 08/09/24 documented as of this encounter
--- OUTSIDE RECORDS SUMMARY | 2025-02-06 10:11 | XMS_ITS | Clinical Summary ---
Author Organization [facility] Address [address] [place] [address] Phone Care Team Providers Care Client Support Associate Name Role Phone Levi Arguello DO Primary Care Provider [phone] Eleonora Chung MD Unavailable Allergies Active Allergy Reactions Criticality Noted Date Comments Beta-Blockers (Beta-Adrenerg ic Blocking Agts) Shortness of breath High 06/04/2023 Varenicline Other 06/04/2023 Penicillins Unknown 03/17/2023 Medications acyclovir (Zovirax) 400 mg tablet Take 1 tablet (400 mg) by mouth once daily as needed. As needed Active levothyroxine (Synthroid) 88 mcg tablet Take 1 tablet (88 mcg) by mouth once daily. Active DULoxetine (Cymbalta) [address] capsule Take 1 capsule (60 mg) by mouth once daily. Do not crush or chew. Active nitroglycerin (Nitrostat) 0.4 mg SL tabletIndications:S ensation of chest pressure,Arterioscl erosis of coronary artery Place 1 tablet (0.4 mg) under the tongue every 5 minutes if needed for chest pain. 90 tablet 1 5 06/06/19 26 Active nicotine (Nicoderm CQ) 21 mg/24 hr patchIndications:Cu rrent smoker Place 1 patch over 24 hours on the skin once every 24 hours. Use for a total of 6 weeks and then decrease to 14 mg/day for 6 weeks and then 7mg/day for 6 weeks 42 patch 5 Active nicotine (Nicoderm CQ) 14 mg/24 hr patchIndications:Cu rrent smoker Place 1 patch over 24 hours on the skin once every 24 hours. 42 patch 5 Active nicotine (Nicoderm CQ) 7 mg/24 hr patchIndications:Cu rrent smoker Place 1 patch over 24 hours on the skin once every 24 hours. 42 patch 5 Active clopidogrel (Plavix) 75 mg tabletIndications:H istory of PTCA Take 1 tablet (75 mg) by mouth once daily. 90 tablet 1 5 07/12/19 26 Active magnesium oxide (Mag-Ox) 400 mg tabletIndications:H istory of PTCA,Mixed hyperlipidemia,Curr ent smoker,COVID-19 Take 1 tablet (400 mg) by mouth 2 times a day. 180 tablet 1 5 07/12/19 26 Active atorvastatin (Lipitor) 40 mg tabletIndications:M ixed hyperlipidemia Take 1 tablet (40 mg) by mouth once daily. 90 tablet 1 5 07/12/19 26 Active aspirin 81 mg EC tabletIndications:A rteriosclerosis of coronary artery,Coronary artery disease involving [place] coronary artery of [place] heart without angina pectoris Take 1 tablet (81 mg) by mouth once daily. 90 tablet 3 5 12/01/19 26 Active Active Problems Problem Noted Date Diagnosed Date BMI 25.0-25.9,adult 07/11/2024 Encounter for pre-operative cardiovascular clear ance 07/11/2024 BMI 24.0-24.9, adult 06/06/2024 Sensation of chest pressure 06/06/2024 Chronotropic incompetence 06/06/2024 Primary hypertension 06/04/2023 Encounter to discuss test results 06/04/2023 Current smoker 04/06/2023 Palpitations 04/06/2023 Coronary artery disease invo lving [place] coronary artery of [place] heart without angina pectoris 03/17/2023 COVID-19 03/17/2023 History of PTCA 03/17/2023 Hyperlipidemia 03/17/2023 SOB (shortness of breath) on exertion 03/17/2023 Encounters Date Type Department Care Team Description 01/12/2025 Patient Risk Score ACO Care Management [address] [place] [address] 12/11/2024 Patient Risk Score ACO Care Management [address] [facility] [address] [place] [address] 11/30/2024 Refill [facility] [address] [place] [address] Eleonora Chung MD Arteriosclerosis of coronary artery; Mixed hyperlipidemia; Coronary artery disease involving [place] coronary artery of [place] heart without angina pectoris 11/11/2024 Patient Risk Score ACO Care Management [address] [facility] [address] [place] [address] from Last 3 Months Immunizations Immunization Administration Dates Next Due Flu vaccine, trivalent, pres ervative free, age 6 months and greater (Fluarix/Fluzone/Flulaval) 04/15/2024 Pneumococcal conjugate vaccine, 20-valent (PREVN AR 20) 04/15/2024 Family History Medical History Relation Name Comments Heart disease Father Relation Name Status Comments Father Social History Tobacco Use Types Packs/Day Years Used Date Smoking Tobacco: Every Day Cigarettes Smokeless Tobacco: Never Tobacco Cessation:Ready to Q uit: Not Asked; Counseling Given: Yes Comments:She cannot tolerate Chantix. She does not [...] Orientation Straight 07/05/2024 9: 45 AM EST Last Filed Vital Signs Vital Sign Reading Time Taken Comments Blood Pressure 134/86 07/11/2024 10:38 AM EST Pulse 76 07/11/2024 10:38 AM EST Temperature - - Respiratory Rate - - Oxygen Saturation - - Inhaled Oxygen Concentration - - Weight 75.3 kg (166 lb) 07/11/2024 10:38 AM EST Height 172.7 cm (5' 8 ) 07/11/2024 10:38 AM EST Body Mass Index 25.24 07/11/2024 10:38 AM EST Plan of Treatment Health Maintenance Due Date Last Done Comments CT Colonography 1969 Colonoscopy 1969 Colorectal Cancer Screening 1969 FIT-DNA (Cologuard) 1969 FIT 1969 HIV Screening 1969 Lipid Panel 1969 Sigmoidoscopy 1969 TSH Level 1969 Yearly Adult Physical 1969 MMR Vaccines (1 of 1 - Stand franki series) 1970 Diabetes Screening 12/04/1987 Hepatitis C Screening 12/04/1987 Hepatitis B Vaccines (1 of 3 - 19+ 3-dose series) 1988 Cervical Cancer Screening 1990 HPV/Cotest 1990 Pap Smear 1990 DTaP/Tdap/Td Vaccines (1 - Tdap) 12/04/1991 Mammogram 2009 Zoster Vaccines (1 of 2) 12/04/2019 COVID-19 Vaccine (1 - 2023-2 5 season) 2025 Influenza Vaccine (#1) 2025 04/15/2024 Pneumococcal Vaccine Completed 04/15/2024 HIB Vaccines Aged Out No longer eligi ble based on patient's age to complete this topic HPV Vaccines Aged Out No longer eligi ble based on patient's age to complete this topic Hepatitis A Vaccines Aged Out No long er eligible based on patient's age to complete this topic IPV Vaccines Aged Out No longer eligi ble based on patient's age to complete this topic Meningococcal Vaccine Aged Out No rashawn kyra eligible based on patient's age to complete this topic Rotavirus Vaccines Aged Out No longer eligible based on patient's age to complete this topic Insurance [facility] [employer] Care Teams Client Support Associate Relationship Specialty Start Date End Date Levi Arguello DO [address] [place] [address] PCP - General Family Medicine 06/04/23 Eleonora Chung MD [address] [address] PCP - [facility] PCP 08/09/24
--- OUTSIDE RECORDS SUMMARY | 2025-02-06 10:11 | XMS_ITS | Encounter Summary ---
Author Organization [facility] Address [address] [place] [address] Phone Care Team Providers Care Weaving Instructor Name Role Phone Levi Arguello DO Primary Care Provider [phone] Eleonora Chung MD Unavailable Levi Arguello DO Primary Care Provider [phone] Eleonora Chung MD Unavailable Eleonora Chung MD Unavailable Eleonora Chung MD Unavailable Encounter Details Date Type Department Care Team (Late st Contact Info) Description 08/06/2020 Orders Only [facility] [address] [place] [address] Conversion, Onbase Social History Tobacco Use Types [...] r Schedule OUTSIDE LAB SCAN Lab Ordered: 08/06/2020 documented as of this encounter Visit Diagnoses Not on filedocumented in this encounter Care Teams Weaving Instructor Relationship Specialty Start Date End Date Levi Arguello DO PCP - General 05/11/99 06/03/23 Eleonora Chung MD [address] [place] [address] PCP - [facility] Medicaid PCP 11/08/22 3 [place] [address] [place] [address] PCP - General Family Medicine 06/04/23 Eleonora Chung MD [address] [place] [address] PCP - [facility] PCP 05/11/2310/08 Eleonora Chung MD [address] [place] [address] PCP - [facility] Medicaid PCP 11/09/23 4 Eleonora Chung MD [address] [place] [address] PCP - [facility] PCP 08/09/24 documented as of this encounter
--- OUTSIDE RECORDS SUMMARY | 2025-02-06 10:11 | XMS_ITS | Encounter Summary ---
Author Organization [facility] Address [address] [place] [address] Phone Care Team Providers Care Fishing Hand Name Role Phone Levi Arguello DO Primary Care Provider [phone] Eleonora Chung MD Unavailable Eleonora Chung MD Unavailable Encounter Details Date Type Department Care Team (Late st Contact Info) Description 10/12/2023 Patient Risk Score [facility] Care Management [address] [place] [address] Social History Tobacco Use Types [...] documented as of this encounter Care Teams Fishing Hand Relationship Specialty [place] [address] [place] [address] PCP - General Family Medicine 06/04/23 Eleonora Chung MD [address] [address] PCP - [facility] Medicaid PCP 11/09/23 4 Eleonora Chung MD [address] [address] PCP - [facility] PCP 08/09/24 documented as of this encounter
--- OUTSIDE RECORDS SUMMARY | 2025-02-06 10:11 | XMS_ITS | Encounter Summary ---
Author Organization [facility] Address [address] [place] [address] Phone Care Team Providers Care Anesthesiologist Assistant Certified Name Role Phone Levi Arguello DO Primary Care Provider [phone] Eleonora Chung MD Unavailable Encounter Details Date Type Department Care Team (Late st Contact Info) Description 04/09/2024 Scanned Document [facility] [address] [place] [id number] Scanning, Generic Provider Social History Tobacco Use [...] documented as of this encounter Care Teams Anesthesiologist Assistant Certified Relationship Specialty Start Date End Date Levi Arguello DO [address] [place] [address] PCP - General Family Medicine 06/04/23 Eleonora Chung MD [address] [address] PCP - [facility] PCP 08/09/24 documented as of this encounter
--- OUTSIDE RECORDS SUMMARY | 2025-02-06 10:11 | XMS_ITS | Encounter Summary ---
Author Organization [facility] Address [address] [place] [address] Phone Care Team Providers Care Centrifugal Station Operator Name Role Phone Levi Arguello DO Primary Care Provider [phone] Eleonora Chung MD Unavailable Levi Arguello DO Primary Care Provider [phone] Eleonora Chung MD Unavailable Eleonora Chung MD Unavailable Eleonora Chung MD Unavailable Encounter Details Date Type Department Care Team (Late st Contact Info) Description 11/11/2019 Orders Only [facility] [address] [place] [address] Conversion, Onbase Social History Tobacco Use Types [...] r Schedule OUTSIDE LAB SCAN Lab Ordered: 11/11/2019 documented as of this encounter Visit Diagnoses Not on filedocumented in this encounter Care Teams Centrifugal Station Operator Relationship Specialty Start Date End Date Levi Arguello DO PCP - General 05/11/99 06/03/23 Eleonora Chung MD [address] [place] [address] PCP - [facility] Medicaid PCP 11/08/22 3 [place] [address] [place] [address] PCP - General Family Medicine 06/04/23 Eleonora Chung MD [address] [place] [address] PCP - [facility] PCP 05/11/2310/08 Eleonora Chung MD [address] [place] [address] PCP - [facility] Medicaid PCP 11/09/23 4 Eleonora Chung MD [address] [place] [address] PCP - [facility] PCP 08/09/24 documented as of this encounter
--- OUTSIDE RECORDS SUMMARY | 2025-02-06 10:11 | XMS_ITS | Patient Health Record ---
Author Organization [facility] Address [address] [place], [place] [id number] Care Team Providers Care Ship Fitter Name Role Phone Sheila Barnhart Unavailable [phone] Reason For Referral No Information Plan Of Treatment No Information Insurance Providers Payer Name Payer Address Payer Phone Subscriber Number Group Number Insured Name Patient Relationship to Insured Coverage Start Date Coverage End Date [employer] [address] [place] [address] [id number] Eleonora Cruz Self - patient is the insured 4 D[employer]icaid [employer] after [employer] [address] [place], [place] [id number] Eleonora Cruz Self - patient is the insured 4
--- OUTSIDE RECORDS SUMMARY | 2025-02-06 10:11 | XMS_ITS | Encounter Summary ---
Author Organization [facility] Address [address] [place] [address] Phone Care Team Providers Care Information Systems Supervisor Name Role Phone Levi Arguello DO Primary Care Provider [phone] Levi Arguello DO Primary Care Provider [phone] Eleonora Chung MD Unavailable Eleonora Chung MD Unavailable Eleonora Chung MD Unavailable Encounter Details Date Type Department Care Team (Late st Contact Info) Description 03/13/2023 Patient Risk Score [facility]CO Care Management [address] [place] [address] Social History Tobacco Use Types [...] documented as of this encounter Care Teams Information Systems Supervisor Relationship Specialty Start Date End Date Levi Arguello DO PCP - General 05/11/99 06/03/23 Levi Arguello DO [address] [place] [address] PCP - General Family Medicine 06/04/23 Eleonora Chung MD [address] [place] [address] PCP - [facility] PCP 05/11/2310/08 Eleonora Chung MD [address] [place] [address] PCP - [facility] Medicaid PCP 11/09/2302/07/ 4 Eleonora Chung MD [address] [place] [address] PCP - [facility] PCP 08/09/24 documented as of this encounter
--- OUTSIDE RECORDS SUMMARY | 2025-02-06 10:11 | XMS_ITS | Encounter Summary ---
Author Organization [facility] Address [address] [place] [address] Phone Care Team Providers Care Clinical Education Assistant Name Role Phone Levi Arguello Primary Care Provider Eleonora Chung MD Unavailable Encounter Details Date Type Department Care Team (Late st Contact Info) Description 03/14/2024 Patient Risk Score [facility] Care Management [address] [place] [address] Social History Tobacco Use Types [...] documented as of this encounter Care Teams Clinical Education Assistant Relationship Specialty Start Date End Date Levi Arguello DO [address] [place] [address] PCP - General Family Medicine 06/04/23 Eleonora Chung MD [address] [address] PCP - [facility] PCP 08/09/24 documented as of this encounter
--- NOTE | 2025-02-06 10:12 | CT_ITS ---
The [address] [address] Patient Name: ZAYDA ABEL MRN: [id number] date: 1970 Sex: F Assigned Patient Location: CT Current Patient Location: CT Accession/Order Number: [id number] Exam Date: 02/06/2025 10:26 Report Date: 02/06/2025 11:31 At the request of: MORENA TREJO Procedure: CT sinus wo con CT PARANASAL SINUSES WITHOUT CONTRAST: CLINICAL HISTORY: Nasal Polyp, Headache, Chronic Sinusitis COMPARISON: CT brain 05/05/2020 TECHNIQUE: Contiguous axial unenhanced images were obtained through the paranasal sinuses. Coronal reconstructions were also performed. This CT exam was performed using one or more following dose reduction techniques: Automated exposure control, adjustment of the mA and/or kV according to patient size, or use of iterative reconstruction technique. FINDINGS: There is appropriate development and pneumatization. There is redemonstration of previous medial maxillectomy and bilateral ethmoidectomy. There is minimal basilar right maxillary and residual right ethmoid mucosal thickening. No fluid levels are seen. Slight nasal septal deviation is present to the left. There is no bony destruction. Minor carotid siphon plaque is noted. CT/CT sinus wo con IMPRESSION: POSTOPERATIVE CHANGES, DESCRIBED. MINIMAL CHRONIC RIGHT-SIDED SINUSITIS. Impression dictated by: Love Beard M.D. 02/06/2025 11:31 AM Dictation Location: [place] [address] Electronically authenticated by: [id number] Y Date: 02/06/2025 11:31
--- OUTSIDE RECORDS SUMMARY | 2025-02-06 10:56 | XMS_ITS ---
Author Name Auto Generated Organization OHIP Support Name Relationship Address Phone [place] Abel Next of Kin Unknown [phone] Annabel Damon Next of Kin [address] [place] [address] + [place], [place] Next of Kin Unknown [phone] [place], [place] Next of Kin Unknown [phone] [place], [place] Next of Kin Unknown [phone] [place], [place] Next of Kin Unknown [phone] [place], [place] Next of Kin Unknown [phone] Annabel Damon Next of Kin [address] [place] [address] + [place], [place] Next of Kin Unknown [phone] [place], [place] Next of Kin Unknown [phone] [place], [place] Next of Kin Unknown [phone] [place], [place] Next of Kin Unknown [phone] [place], [place] Next of Kin Unknown [phone] [place], [place] Next of Kin Unknown [phone] [place], [place] Next of Kin Unknown [phone] [place], [place] Next of Kin Unknown [phone] [place], [place] Next of Kin Unknown [phone] [place], [place] Next of Kin Unknown [phone] [place], [place] Next of Kin Unknown [phone] [place], [place] Next of Kin Unknown [phone] [place], [place] Next of Kin [address] [place] [address] + [place] ABEL Next of Kin [address] [place] [address] + [place] ABEL Next of Kin Unknown [phone] [place], [place] Next of Kin Unknown [phone] [place], [place] Next of Kin Unknown [phone] [place], [place] Next of Kin Unknown [phone] [place], [place] Next of Kin Unknown [phone] [place], [place] Next of Kin Unknown [phone] [place], [place] Next of Kin Unknown [phone] [place], [place] Next of Kin Unknown [phone] Care Team Providers Care Axle Inspector Name Role Phone HOUSE, LEVI P Primary Care Unavailable CHUNG, MATHIEU Admitting Unavailable CHUNG, MATHIEU Attending Unavailable HOUSE, LEVI P Primary Care Unavailable HOUSE, DO LEVI P Attending Unavailable HOUSE, LEVI P Primary Care Unavailable HOUSE, DO LEVI P Attending Unavailable HOUSE, DO LEVI P Attending Unavailable HOUSE, LEVI P Primary Care Unavailable HOUSE, DO LEVI P Attending Unavailable HOUSE, LEVI P Primary Care Unavailable HOUSE, LEVI P Primary Care Unavailable HOUSE, DO LEVI P Attending Unavailable HOUSE, LEVI P Primary Care Unavailable HOUSE, DO LEVI P Attending Unavailable HOUSE, LEVI P Primary Care Unavailable HOUSE, DO LEVI P Attending Unavailable HOUSE, LEVI P Primary Care Unavailable HOUSE, DO LEVI P Attending Unavailable HOUSE, LEVI P Primary Care Unavailable HOUSE, DO LEVI P Admitting Unavailable HOUSE, DO LEVI P Attending Unavailable Olga Lidia, Sylwia J Admitting Unavailable Olga Lidia, Sylwia J Attending Unavailable Olga Lidia, Sylwia J Referring Unavailable Olga Lidia, Sylwia J Admitting Unavailable Olga Lidia, Sylwia J Attending Unavailable Olga Lidia, Sylwia J Referring Unavailable CHUNG, MATHIEU Attending Unavailable CHUNG, MATHIEU Referring Unavailable HOUSE, LEVI P Primary Care Unavailable CHUNG, MATHIEU Attending Unavailable CHUNG, MATHIEU Referring Unavailable HOUSE, LEVI P Primary Care Unavailable CHUNG, MATHIEU Referring Unavailable HOUSE, LEVI P Primary Care Unavailable CHUNG, MATHIEU Referring Unavailable HOUSE, LEVI P Primary Care Unavailable CHUNG, MATHIEU Referring Unavailable HOUSE, LEVI P Primary Care Unavailable CHUNG, MATHIEU Referring Unavailable HOUSE, LEVI P Primary Care Unavailable CHUNG, MATHIEU Referring Unavailable HOUSE, [facility] Primary Care Unavailable Cass Drummond Admitting Unavailable Cass Drummond Attending Unavailable House, [facility] Primary Care Unavailable Caryn, Priscilla M Admitting Unavailable Caryn, Priscilla M Attending Unavailable [place], Levi Primary Care Unavailable House, [facility] Primary Care Unavailable Alexandra Garcia Consulting Unavailable WassoHanna read Admitting Unavailable DaromaChiqui malcolm Attending Unavailable Alyse, Camden Consulting Unavailable Dilip Pierre Consulting Harrietvahilaria Burrisoroge, Luh Consulting Unavailable TIMMIS, YULIA H Attending Unavailable [place], [facility] Referring Unavailable TIMMIS, YULIA H Referring Unavailable PROBLEMS DATE TYPE CONDITION / CODE ATTENDING STATUS [facility] 01/26/2025 Final Diagnosis (Discharge) Chronic sinusitis, unspecified / J32.9(ICD-10) [place], [facility] 01/26/2025 Final Diagnosis (Discharge) Nasal polyp, unspecified / J33.9(ICD-10) [place] 01/26/2025 Final Diagnosis (Discharge) Headache, unspecified / R51.9(ICD-10) [place], [facility] 01/26/2025 Final Diagnosis (Discharge) Hyperlipidemia, unspecified / E78.5(ICD-10) [place], [facility] 01/26/2025 Final Diagnosis (Discharge) Heart disease, unspecified / I51.9(ICD-10) [place], [facility] 01/26/2025 Final Diagnosis (Discharge) Disorder of thyroid, unspecified / E07.9(ICD-10) [place], [facility] 01/26/2025 Final Diagnosis (Discharge) Age-related osteoporosis without current pathological fracture / M81.0(ICD-10) [place], [facility] 01/26/2025 Final Diagnosis (Discharge) Cough, unspecified / R05.9(ICD-10) [place], [facility] 01/26/2025 Final Diagnosis (Discharge) Depression, unspecified / F32.A(ICD-10) [place], [facility] 01/26/2025 Final Diagnosis (Discharge) Essential (primary) hypertension / I10(ICD-10) [place], [facility] 01/26/2025 Final Diagnosis (Discharge) Unspecified osteoarthritis, unspecified site / M19.90(ICD-10) [facility] 01/26/2025 Final Diagnosis (Discharge) Unspecified asthma, uncomplicated / J45.909(ICD-10) [place], [facility] 01/26/2025 Final Diagnosis (Discharge) Anxiety disorder, unspecified / F41.9(ICD-10) [place], [facility] 12/22/2024 Final Diagnosis (Discharge) Cluster headache syndrome, unspecified, not intractable / G44.009(ICD-10) [facility] 12/22/2024 Final Diagnosis (Discharge) Migraine, unspecified, not intractable, without status migrainosus / G43.909(ICD-10) [facility] 12/22/2024 Final Diagnosis (Discharge) Arthralgia of temporomandibular joint, unspecified side / M26.629(ICD-10) [facility] 11/08/2024 Final Diagnosis (Discharge) Muscle spasm of back / M62.830(ICD-10) [facility] 08/04/2024 Unknown Pain in right fo ot / M79.671(ICD-10) Cass Drummond [facility] 07/11/2024 Admitting Diagnosis Atherosclerotic heart disease of [place] coronary artery without angina pectoris / I25.10(ICD-10) [facility] 07/11/2024 Admitting Diagnosis Encounter for preprocedural cardiovascular examination / Z01.810(ICD-10) [facility] 07/11/2024 Admitting Diagnosis Essential (primary) hypertension / I10(ICD-10) [facility] 07/11/2024 Admitting Diagnosis Body mass index (BMI) 25.0-25.9, adult / Z68.25(ICD-10) [facility] 06/06/2024 Admitting Diagnosis Other specified conduction disorders / I45.89(ICD-10) [facility] 06/06/2024 Admitting Diagnosis Other chest pain / R07.89(ICD-10) [facility] 06/06/2024 Admitting Diagnosis Body mass index (BMI) 24.0-24.9, adult / Z68.24(ICD-10) [facility] 04/06/2023 Admitting Diagnosis Palpitations / R00.2(ICD-10) [facility] 04/06/2023 Admitting Diagnosis Nicotine dependence, unspecified, uncomplicated / F17.200(ICD-10) [facility] 03/17/2023 Admitting Diagnosis Coronary angioplasty status / Z98.61(ICD-10) [facility] 03/17/2023 Admitting Diagnosis Mixed hyperlipidemia / E78.2(ICD-10) [facility] 03/17/2023 Admitting Diagnosis COVID-19 / U07.1(ICD-10) [facility] 04/09/2024 Unknown Chest pain, unsp ecified / R07.9(ICD-10) [facility] 04/09/2024 Unknown Tobacco use / Z72.0(ICD-10) [facility] PROCEDURES No Procedure Records Found RESULTS XR WRIST LT MIN 3V* Observed: 02/06/2025 11:35 AM Status: COMPLETED Source: [facility] [place] [address] XRay Report Signed Patient: Eleonora Abel MR#: [id number] : 1970 Acct:[id number] Age/Sex: 54 / F ADM Date: 02/06/25 [facility]: Type[facility] Attending Dr: Priscilla Rubin APRN Copies to: Priscilal Rubin APRN Ordering Provider: Priscilla M Caryn, COATING MACHINE OPERATOR HELPER Date of Service: 02/06/25 XR/XR wrist LT min 3V*: LEFT WRIST PAIN XR wrist LT min 3V* 02/06/2025 11:19 AM SIGNS AND SYMPTOMS: Left wrist pain dorsally along the ulnar aspect PROTOCOL: 4 views of the left wrist COMPARISON: None FINDINGS: The radiocarpal joint and carpal rows are preserved. There is no fracture or dislocation. No significant soft tissue swelling. XR/XR wrist LT min 3V* IMPRESSION: No acute bony injury, significant degenerative change, or significant soft tissue swelling. Impression dictated by: Uri Ayala M.D. 02/06/2025 11:35 AM Dictation Location: [facility]- Transcribed By: [facility] 02/06/25 1135 Dictated By: Uri Ayala II, MD 02/06/25 1135 Signed By: <Electronically signed by Uri Ayala II, MD in OV> 02/06/25 1135 MEDICATION MANAGEMENT Observed: 11/14/19 7:39 PM Status: F Source: [facility] Entered by LEVI TREJO DO on November 13, 2024 19:39:49 EDT From: LEVI TREOJ DO To: [facility]pharmacy #[id number] Sent: 11/13/2024 19:39:49 EDT Subject: Medication Management Submitted: Complete:levothyroxine (levothyroxine 88 mcg (0.088 mg) oral tablet) Signed by LEVI TREJO DO 11/13/2024 19:39:00 EDT Approved with modifications: levothyroxine (LEVOTHYROXINE 88 MCG TABLET) TAKE 1 TABLET BY MOUTH EVERY DAY Qty: 30 tab(s) Days Supply: 30 Refills: 5 Substitutions Allowed Route To Pharmacy - [facility]/pharmacy #[id number] From: [facility] STORE [id number] To: LEVI TREJO DO Sent: November 12, 2024 6:32:38 AM CDT Subject: Medication Management Due: November 13, 2024 12:13:00 AM CDT On Hold Pending Signature Dispensed Drug: levothyroxine (levothyroxine 88 mcg (0.088 mg) oral tablet), TAKE 1 TABLET BY MOUTH EVERY DAY Quantity: 30 tab(s) Days Supply: 30 Refills: 0 Substitutions Allowed Notes from Pharmacy: MEDICATION MANAGEMENT Observed: 11/01/19 7:33 AM Status: F Source: [facility] Entered by LEVI TREJO DO on October 31, 2024 07:33:06 EDT From: LEVI TREJO DO To: [facility]/pharmacy #[id number] Sent: 10/31/2024 07:33:06 EDT Subject: Medication Management Submitted: Complete:DULoxetine (DULoxetine 60 mg oral delayed release capsule) Signed by LEVI TREJO DO 10/31/2024 07:33:00 EDT Approved with modifications: DULoxetine (DULOXETINE HCL DR 60 MG CAP) TAKE 1 CAPSULE BY MOUTH EVERY DAY . DO NOT CRUSH OR CHEW Qty: 30 cap(s) Days Supply: 30 Refills: 5 Substitutions Allowed Route To Pharmacy - [facility]/pharmacy #[id number] From: [facility] STORE [id number] To: LEVI TREJO DO Sent: October 30, 2024 11:23:45 PM CDT Subject: Medication Management Due: October 31, 2024 12:18:08 AM CDT On Hold Pending Signature Dispensed Drug: DULoxetine (DULoxetine 60 mg oral delayed release capsule), TAKE 1 CAPSULE BY MOUTH EVERY DAY . DO NOT CRUSH OR CHEW Quantity: 30 cap(s) Days Supply: 30 Refills: 5 Substitutions Allowed Notes from Pharmacy: CONSULTATION/SPECIALIST NOTE Observed: 0 08/05/2024 7:41 AM Status: F Source: [facility] [id number]#1.00OTGTIFF XR ANKLE RT MIN 3V* Observed: 08/04/2024 11:11 AM Status: COMPLETED Source: [facility] [address] XRay Report Signed Patient: Eleonora Abel MR#: [id number] : 1970 Acct:[id number] Age/Sex: 53 / F ADM Date: 08/04/24 Loc: [facility] Room: Type: [facility] Attending Dr: Cass Drummond APRN Copies to: Cass Drummond APRN Ordering Provider: Cass Drummond APRN Date of Service: 08/04/24 XR/XR ankle RT min 3V*: T14.90XA - Injury, unspecified, initial encounter RIGHT ANKLE - 3 views CLINICAL HISTORY: Right ankle injury, pain COMPARISON: None FINDINGS: No fracture dislocation. Mild soft tissue swelling.. Questionable findings of underlying tarsal coalition XR/XR ankle RT min 3V* IMPRESSION: Soft tissue swelling. No acute fractures identified. Impression dictated by: Luis F Will M.D.08/04/2024 11:19 AM Dictation Location: [place] [address] Transcribed By: [facility] 08/04/24 1119 Dictated By: Luis F Will MD 08/04/24 1111 Signed By: <Electronically signed by Luis F Will MD in OV> 08/04/24 1119 OUTSIDE RECORDS Observed: 08/04/2024 7:39 AM Status: F Source: [facility] [id number]#1.00OTGTIFF CODING SUMMARY Observed: 08/03/2024 12:37 PM Status: F Source: [facility] HTMLBase 64 QsakojzbCFq1cWx+PGhlYWQ+[id number]XgEY3keTAq ZXJu [file] [id number]+[id number]+FN5npL8iGt== REMINDER MESSAGES Observed: 07/28/2024 4:46 PM Status: C Source: [facility] From: LEVI TREJO DO To: [facility] Clinical Pool ([facility] Sent: 07/28/2024 16:46:25 EDT ! Show up: 07/28/2024 16:46:25 EDT Subject: Results Follow Up Actions: Call the patient with result(s) Due Date/Time: 07/29/2024 16:46:00 EDT Reminder Comments: looks okay Results: Date Result Name Ind Value Ref Range 07/28/2024 14:52 Sodium Level (L) 134.0 mmol/L (136.0 - 144.0) 07/28/2024 14:52 Potassium Level 3.8 mmol/L (3.6 - 5.1) 07/28/2024 14:52 Chloride Level 101 mmol/L (101 - 111) 07/28/2024 14:52 CO2 25 mmol/L (21 - 32) 07/28/2024 14:52 Anion Gap 11.8 mmol/L (5.0 - 19.0) 07/28/2024 14:52 Glucose Level 93.0 mg/dL (74.0 - 118.0) 07/28/2024 14:52 BUN 11 mg/dL (8 - 26) 07/28/2024 14:52 Creatinine Level 0.78 mg/dL (0.60 - 1.30) 07/28/2024 14:52 BUN/Creat Ratio 14.1 (4.6 - 16.2) 07/28/2024 14:52 eGFR AA >60 mL/min/1.73m2 07/28/2024 14:52 eGFR Non AA >60 mL/min/1.73m2 07/28/2024 14:52 Calcium Level 9.3 mg/dL (8.9 - 10.3) 07/28/2024 14:52 Bili Total 0.3 mg/dL (0.3 - 1.2) 07/28/2024 14:52 Alk Phos (H) 110 IU/L (32 - 91) 07/28/2024 14:52 AST/SGOT 21 IU/L (15 - 41) 07/28/2024 14:52 ALT/SGPT 28.0 IU/L (14.0 - 54.0) 07/28/2024 14:52 Protein Total 7.8 gm/dL (6.5 - 8.1) 07/28/2024 14:52 Albumin Level 3.9 gm/dL (3.5 - 5.0) 07/28/2024 14:52 Globulin 3.9 gm/dL (1.5 - 4.3) 07/28/2024 14:52 A/G Ratio (L) 1.0 (1.4 - 2.6) 07/28/2024 14:52 Osmolality 267 mOsm/L 07/28/2024 14:52 Cholesterol 164.0 mg/dL (66.0 - 200.0) 07/28/2024 14:52 HDL 42 mg/dL (40 - 71) 07/28/2024 14:52 Chol/HDL Ratio 3.9 (0.0 - 4.5) 07/28/2024 14:52 LDL (H) 103 mg/dL (1 - 100) 07/28/2024 14:52 Trig 95.0 mg/dL (0.0 - 150.0) 07/28/2024 14:52 VLDL. 19 mg/dL (5 - 40) 07/28/2024 14:52 T4 7.81 mcg/dL (6.09 - 12.23) 07/28/2024 14:52 TSH (H) 8.96 mcIU/mL (0.45 - 5.33) 07/28/2024 14:52 WBC 8.4 x103/mcL (3.5 - 10.5) 07/28/2024 14:52 RBC 4.37 x106/mcL (3.70 - 5.30) 07/28/2024 14:52 Hgb 12.8 gm/dL (11.3 - 15.9) 07/28/2024 14:52 Hct 38.1 % (33.7 - 40.4) 07/28/2024 14:52 MCV 87 fL (81 - 100) 07/28/2024 14:52 MCH 29 pg (24 - 34) 07/28/2024 14:52 MCHC 34 gm/dL (26 - 37) 07/28/2024 14:52 RDW (H) 16.2 % (11.5 - 15.0) 07/28/2024 14:52 Platelet 362 x103/mcL (138 - 427) 07/28/2024 14:52 MPV 7.3 fL (6.3 - 10.2) 07/28/2024 14:52 Auto Neut % 67 % (44 - 88) 07/28/2024 14:52 Auto Lymph % 24 % (14 - 48) 07/28/2024 14:52 Auto [place] % 7 % (1 - 12) 07/28/2024 14:52 Auto Eos % (L) 0.3 % (0.9 - 4.0) 07/28/2024 14:52 Auto Baso % 0.6 % (0.2 - 2.0) 07/28/2024 14:52 Neut Abs# 5.7 x103/mcL (1.5 - 9.2) 07/28/2024 14:52 Lymph Abs# 2.0 x103/mcL (1.3 - 2.9) 07/28/2024 14:52 [place] Abs# 0.6 x103/mcL (0.0 - 0.8) 07/28/2024 14:52 Eos Abs# 0.0 x103/mcL (0.0 - 0.4) 07/28/2024 14:52 Baso Abs# 0.0 x103/mcL (0.0 - 0.2) Patient notified of normal results CBC W/ AUTO DIFF Collected: 2:52 PM Status: F Source: [facility] TYPE CODE TESTS RESULT OUT OF RANGE REFERENCE UNITS LAB 9358385([facility]) Man Diff? Auto Unknown LAB 1477619(LOINC) WBC 8.4 3.5-10.5 x10 LAB 7302299(LOINC) RBC 4.37 3.70-5.30 x10 LAB 0954582(LOINC) Hgb 12.8 11.3-15.9 gm/dL LAB 5302110(LOINC) Hct 38.1 33.7-40.4 % LAB 4225004(LOINC) MCV 87 81-100 fL LAB 6620426(INC) MCH 29 24-34 pg LAB 8537753(LOINC) MCHC 34 26-37 gm/dL LAB 8783173(LOINC) RDW 16.2 High 11.5-15.0 % LAB 8498691(LOINC) Platelet 362 138-427 x10 LAB 2844390(LOINC) MPV 7.3 6.3-10.2 fL Performed By: #### [id number], [id number], 2777527, [id number], [id number], [id number] #### [facility] (DEFAULT) [address] [place] [address] .AUTO DIFF 1 Collected: 07/28/2024 2:52 PM Status: F Source: [facility] TYPE CODE TESTS RESULT OUT OF RANGE REFERENCE UNITS LAB 4972052(LOINC) Auto Neut % 67 44-88 % LAB 7547771(LOINC) Auto Lymph % 24 14-48 % LAB 0232015(LOINC) Auto [place] % 7 1-12 % LAB 5603178(LOINC) Auto Eos % 0.3 Low 0.9-4.0 % LAB 1219860(LOINC) Auto Baso % 0.6 0.2-2.0 % LAB 9187848(INC) Neut Abs# 5.7 1.5-9.2 x10 LAB 5224928(LOINC) Lymph Abs# 2.0 1.3-2.9 x10 LAB 2394603(INC) [place] Abs# 0.6 0.0-0.8 x10 LAB 8468889(INC) Eos Abs# 0.0 0.0-0.4 x10 LAB 4849033(INC) Baso Abs# 0.0 0.0-0.2 x10 Performed By: #### [id number], 6276692, 1062599, [id number], [id number], [id number] #### [facility] (DEFAULT) [address] [place] [address] CMP STANDARD Collected: 2:52 PM Status: F Source: [facility] TYPE CODE TESTS RESULT OUT OF RANGE REFERENCE UNITS LAB 5274720(INC) A/G Ratio 1.0 Low 1.4-2.6 LAB 5414562(LOINC) Anion Gap 11.8 5.0-19.0 mmol/L LAB 2931561(LOINC) BUN/Creat Ratio 14.1 4.6-16.2 LAB 1006901(LOINC) Globulin 3.9 1.5-4.3 gm/dL LAB 9952990(LOINC) Osmolality 267 Unknown mOsm/L LAB 3588708(LOINC) Albumin Level 3.9 3.5-5.0 gm/ dL LAB 2976720([facility]) Alk Phos 110 High 32-91 IU/L LAB 0729464([facility]) ALT/SGPT 28.0 14.0-54.0 IU/L LAB 4253781([facility]) AST/SGOT 21 15-41 IU/L LAB 2828633([facility]) Bili Total 0.3 0.3-1.2 mg/dL LAB 7444650([facility]) BUN 11 8-26 mg/dL LAB 5822507([facility]) Calcium Level 9.3 8.9-10.3 mg /dL LAB 6204551([facility]) CO2 25 21-32 mmol/L LAB 1880148([facility]) Chloride Level 101 101-111 mm ol/L LAB 4863795([facility]) Creatinine Level 0.78 0.60-1.30 mg/dL LAB 0889989([facility]) Glucose Level 93.0 74.0-118.0 mg/dL LAB 2331736([facility]) Potassium Level 3.8 3.6-5.1 mmol/L LAB 1646737([facility]) Protein Total 7.8 6.5-8.1 gm/ dL LAB 4630969([facility]) Sodium Level 134.0 Low 136.0-144.0 mmol/L LAB 9894512([facility]) eGFR AA >60 Unknown mL/min/1. 73m2 LAB 5091792([facility]) eGFR Non AA >60 Unknown mL/mi n/1. 73m2 Performed By: #### [id number], 5054450, 5592839, [id number], [id number], [id number] #### [facility] (DEFAULT) [address] [place] [address] LIPID PANEL STANDARD Collected: 07/28/2024 2:52 PM S tatus: F Source: [facility] TYPE CODE TESTS RESULT OUT OF RANGE REFERENCE UNITS LAB 3944889([facility]) LDL 103 High 1-100 mg/dL LAB 77384050([facility]) VLDL. 19 5-40 mg/dL LAB 8463683([facility]) Chol/HDL Ratio 3.9 0.0-4.5 LAB 1686125([facility]) HDL 42 40-71 mg/dL LAB 0174710([facility]) Trig 95.0 0.0-150.0 mg/dL LAB 0292235(LOINC) Cholesterol 164.0 66.0-200.0 mg /dL Performed By: #### [id number], 8298469, 1416132, [id number], [id number], [id number] #### [facility] (DEFAULT) [address] [place] [address] TSH Collected: 2:52 PM Status: F Source: [facility] TYPE CODE TESTS RESULT OUT OF RANGE REFERENCE UNITS LAB 0999252(LOINC) TSH 8.96 High 0.45-5.33 mcIU/mL Performed By: #### [id number], 1048690, 4952372, [id number], [id number], [id number] #### [facility] (DEFAULT) [address] [place] [address] T4, TOTAL Collected: 2:52 PM Status: F Source: [facility] TYPE CODE TESTS RESULT OUT OF RANGE REFERENCE UNITS LAB 8742080(LOINC) T4 7.81 6.09-12.23 mcg/dL Performed By: #### [id number], 9515350, 0132257, [id number], [id number], [id number] #### [facility] (DEFAULT) [address] [place] [address] PROVIDER ORDERS Observed: 07/28/2024 2:41 PM Status: F Source: [facility] [id number]#1.00OTGTIFF CONSULTATION/SPECIALIST NOTE Observed: 0 07/11/2024 2:38 PM Status: F Source: [facility] [id number]#1.00OTGTIFF NUCLEAR STRESS TEST Observed: 07/05/2024 8:31 AM Status: F Source: [facility] Interpreted By: Nirav Bowden and Giannuzzi Michael STUDY: MYOCARDIAL PERFUSION STRESS TEST WITH LEXISCAN Performing facility: [facility], [address] [place] [address], [address], [place] [address] [facility] Provider: Mathieu Chung MD, FACC PCP: Dr. Gabriel Trejo Supervising provider: Celeste Madison MD, [facility] INDICATION: R07.89 Other chest pain,I25.10 Atherosclerotic heart disease of [place] coronary artery without angina pectoris,I25.10 Atherosclerotic heart disease of [place] coronary artery without angina pectoris,I45.89 Other specified conduction disorders,Z98.61 Coronary angioplasty status HISTORY: Gender: F; Age: 53 y/o ; Height: HT 172.7 cm cm; Weight: WT 74.39 kg kg. Chest Pain; CAD; Hx PTCA Currently smoking. Cardiac catheterization on 2019. PTCA on 2019. COMPARISON: Previous nuclear testing completed at [facility]. ACCESSION NUMBER(S): [id number] ORDERING CLINICIAN: MATHIEU CHUNG TECHNIQUE: ONE DAY protocol. Stress injection: Date:07-05-24, 33.4 mCi of Myoview IV 20 seconds after rapid injection of Lexiscan. Rest injection: Date: 07-05-24, 10.5 mCi of Myoview IV at rest. The patient had a rapid injection of 0.4 mg of Lexiscan IV over 10 seconds. Imaging was performed by gated tomographic technique. Reason for Lexiscan: Exercise intolerance STRESS TEST DATA: Resting heart rate was 65 BPM. Resting blood pressure was 124/78 mmHg. Peak blood pressure was 122/76 mmHg. Peak heart rate was 116 BPM. TEST TERMINATED DUE TO: Protocol completed FINDINGS: STRESS TEST RESULTS: Resting electrocardiogram revealed normal sinus rhythm with nonspecific ST-T changes. There were none diagnostic ischemic ECG changes or dysrhythmias. The patient did not have chest pains/symptoms during procedure. There was a normal recovery phase. IMAGING RESULTS: Image quality was good. Rest and stress tomographic images were reviewed and revealed normal perfusion without evidence of ischemia, myocardial infarction, or left ventricular dilatation with stress. Overall left ventricular systolic function appeared to be normal without regional wall motion abnormalities. Ejection fraction was 67%. TID is 1.22 and is normal. There were evidence of breast attenuation artifact. IMPRESSION: Normal Lexiscan Myoview cardiac perfusion stress test. No evidence of ischemia or myocardial infarction by perfusion imaging. Normal left ventricular systolic function, ejection fraction 67%. No change when compared to previous study. Signed by: Nirav Bowden 07/05/2024 5:09 PM Dictation workstation: [id number] XR PARANASAL SINUSES 3+ VIEWS Observed: 06/21/2024 12:03 PM Status: F Source: [facility] EPIC Order Comment: [place] [facility] [place] TITLE OF EXAM: XR PARANASAL SINUSES 3+ VIEWS REASON FOR EXAM: Right side pain into neck, ear pain. TECHNIQUE: 3 radiographs of the skull/sinuses COMPARISONS: None. FINDINGS: Radiographically clear paranasal sinuses; no appreciable air/fluid level, mucous retention cyst, or polyp. No significant osseous nasal septal deviation. No acute osseous or focal soft tissue abnormality. IMPRESSION: Radiographically clear paranasal sinuses. DICTATED ON: 06/21/2024 10:37 AM This report has been electronically signed and approved by the interpreting radiologist. CONSULTATION/SPECIALIST NOTE Observed: 0 06/10/2024 10:23 AM Status: F Source: [facility] [id number]#1.00OTGTIFF OUTSIDE RECORDS Observed: 06/08/2024 9:36 AM Status: F Source: [facility] [id number]#1.00OTGTIFF EGFR Collected: 1:50 PM Status: F Source: [facility] TYPE CODE TESTS RESULT OUT OF RANGE REFERENCE UNITS LAB 40905399(LOINC) eGFR 87 Normal >=59 mL/min/1 .7 3 m2 Performed By: #### [id number] #### [facility] [address] [place] [address] VITAMIN D 25 HYDROXY Collected: 06/03/2024 1:50 PM S tatus: F Source: [facility] TYPE CODE TESTS RESULT OUT OF RANGE REFERENCE UNITS LAB 1988-(LOINC) CALCIDIOL:MCN C:PT:SER/PLAS :QN: 44.5 Normal 30.0-100.0 ng/mL Performed By: #### [id number] #### [facility] [address] [place] [address] CREATININE Collected: 06/03/2024 1:50 PM Status: F Source: [facility] TYPE CODE TESTS RESULT OUT OF RANGE REFERENCE UNITS LAB 2160-0(LOINC) CREATININE:MC NC:PT:SER/ADELA S:QN: 0.8 Normal 0.5-1.3 mg/dL Performed By: #### [id number] # ### [facility] [address] [place] [address] CALCIUM Collected: 06/03/2024 1:50 PM Status: F Source: [facility] TYPE CODE TESTS RESULT OUT OF RANGE REFERENCE UNITS LAB 66496-3([facility]) CALCIUM:MCNC: PT:SER/PLAS:Q N: 10.0 Normal 8.9-11.1 mg/dL Performed By: #### [id number] # ### [facility] [address] [place] [address] BD BONE DENSITY DEXA Observed: 1:18 PM Status: F Source: [facility] Exam Date/Time: 06/03/2024 13:43 EST Reason for Exam: Z78.9 Report IMPRESSION: OSTEOPOROSIS. The NOF/ISD guideline recommend FRAX for postmenopausal patients (not on treatment) if the lowest T-score for Spine(L1-L4), Femur Neck or Femur Total indicates low bone density (T score -1.0 to -2.5, osteopenia). EXAM: BD Bone Density DEXA CLINICAL HISTORY: Z78.9. COMPARISON: None. COMMENTS: The lumbar spine, left forearm, and both hips were scanned. The mean bone mineral density from L1 to L4 is 1.029 g/cm2 and this value is - 1.3 standard of deviation below the standard reference value for a young adult. Bone mineral density of the left femoral neck is 0.654 g/cm2 and this value is - 2.8 standard of deviation below the standard reference value. Bone mineral density of the right femoral neck is 0.676 g/cm2 and this value is -2.6 standard of deviation below the standard reference value. Bone mineral density left radius 33% is 0.744 g/cm2 and this value is -1.6 standard of deviation below the standard reference value. The lowest value(s) meet WHO criteria for osteoporosis. RECOMMENDATIONS: 1. All patients should optimize her calcium and vitamin D intake. 2. Consider FDA-approved medical therapies in postmenopausal women and minimal age 50 years and older, based on the following: - hip or vertebral (clinical or morphometric) fracture. - T-score less than or equal to -2.5 at the femoral neck or spine after the appropriate evaluation to exclude secondary causes. - Low bone density (T score between -1.0 and -2.5 at the femoral neck or spine) and a 10 year probability of hip fracture greater than or equal to 3% or a 10-year probability of a major osteoporosis-related fracture greater than or equal to 20% based on FRAX calculation. - Clinician judgment and/or patient preferences may indicate treatment for people with 10 year fracture probability above or below these levels. - Further guidance on treatment can be found at the National Osteoporosis Foundation's website: bonesource.org 3. Patients with diagnosis of osteoporosis or high risk for fracture should have regular bone mineral density tests. For patients eligible for Medicare, routine testing is allowed once every 2 years. Testing frequency can be increased to 1 year for patient's history of rapidly progressing disease, those who are receiving or discontinuing medical therapy to restore bone mass or have additional risk factors. Report Ordering Provider: Sylwia Duggan FINAL REPORT Dictated: 06/04/2024 1:49 pm Kash Fallon MD Signed (Electronic Signature): 06/04/2024 1:49 pm Signed by: Kash Fallon MD Transcribed by: EFRAIN Technologist: EDGAR CAGLE MAMM SCREEN W/CAD IF PERF AND 3D BRAYAN Observed: 06/03/2024 12:58 PM Status: F Source: [facility] Exam Date/Time: 06/03/2024 13:44 EST Reason for Exam: Z12.31 Report IMPRESSION: BIRADS 1 NEGATIVE, NORMAL INTERVAL FOLLOW-UP. CLINICAL HISTORY: Screening. COMPARISON: Prior from 2017. RESULT: Digital mammography and 3D tomosynthesis of bilateral breasts was performed. Category C - The breasts are heterogenously dense, which may obscure small masses. There is no suspicious mass, asymmetry, architectural distortion, or calcification. Vascular calcifications: Absent. CAD analysis was performed and used in the interpretation. Dense Breast: Yes Follow-up: 12 MONTH RECALL. Board Certified Radiologists. Accredited by the ACR and FDA. MAMMOGRAPHY IS VERY IMPORTANT TO YOUR HEALTH. THE [place] [employer] GUIDELINES RECOMMEND THAT WOMEN 40 YEARS OF AGE AND OLDER SHOULD HAVE A MAMMOGRAM EVERY YEAR. A REMINDER LETTER WILL BE SENT AT THE APPROPRIATE TIME. THIS FACILITY UTILIZES A REMINDER SYSTEM TO ENSURE ALL PATIENTS RECEIVE REMINDER NOTIFICATIONS AT THE APPROPRIATE TIME BASED ON THE RECOMMENDATIONS OF THIS EXAM. THIS INCLUDES REMINDERS FOR ROUTINE SCREENING MAMMOGRAMS, DIAGNOSTIC MAMMOGRAMS IN WHICH THE PATIENT IS ASKED TO RETURN FOR ADDITIONAL VIEWS, OR OTHER BREAST IMAGING INTERVENTIONS WHEN APPROPRIATE. THE PATIENT WILL BE PLACED IN THE APPROPRIATE REMINDER SYSTEM INCLUDING A REMINDER AT THE APPROPRIATE TIME FOR ANY PENDING ADDITIONAL VIEWS. Report Ordering Provider: Sylwia Duggan FINAL REPORT Dictated: 06/08/2024 4:32 pm Kash Fallon MD Signed (Electronic Signature): 06/08/2024 4:32 pm Signed by: Kash Fallon MD Transcribed by: EFRAIN Technologist: EDGAR Assessment: BI-RADS Category 1-Negative Recommendation: Normal interval follow-up LAB - OTHER LAB RESULTS Observed: 2024 11:43 AM Status: F Source: [facility] [id number]#1.00OTGTIFF RAD - BONE DENSITY REPORT Observed: 06/03/2024 11:41 AM Status: F Source: [facility] [id number]#1.00OTGTIFF RAD - MAMMOGRAPHY REPORT Observed: 06/03 10:06 AM Status: F Source: [facility] [id number]#1.00OTGTIFF MEDICATION MANAGEMENT Observed: 05/05/20 7:33 AM Status: F Source: [facility] Entered by LEVI TREJO DO on May 05, 2024 07:33:18 EST From: LEVI TREJO DO To: [facility]/pharmacy #[id number] Sent: 05/05/2024 07:33:18 EST Subject: Medication Management Submitted: Complete:DULoxetine (DULoxetine 60 mg oral delayed release capsule) Signed by LEVI TREJO DO 05/05/2024 07:33:00 EST Approved with modifications: DULoxetine (DULOXETINE HCL DR 60 MG CAP) TAKE 1 CAPSULE BY MOUTH EVERY DAY . DO NOT CRUSH OR CHEW Qty: 30 cap(s) Days Supply: 30 Refills: 5 Substitutions Allowed Route To Pharmacy - [facility]/pharmacy #[id number] From: [facility] [id number] To: LEVI TREJO DO Sent: May 04, 2024 11:38:33 PM MUTUAL FUND MANAGER Subject: Medication Management Due: May 05, 2024 12:08:29 AM MUTUAL FUND MANAGER On Hold Pending Signature Dispensed Drug: DULoxetine (DULoxetine 60 mg oral delayed release capsule), TAKE 1 CAPSULE BY MOUTH EVERY DAY . DO NOT CRUSH OR CHEW Quantity: 30 cap(s) Days Supply: 30 Refills: 5 Substitutions Allowed Notes from Pharmacy: MEDICATION MANAGEMENT Observed: 04/11/20 24 7:35 AM Status: F Source: [facility] Entered by LEVI TREJO DO on April 11, 2024 07:35:25 EST From: LEVI TREJO DO To: [facility]/pharmacy #[id number] Sent: 04/11/2024 07:35:25 EST Subject: Medication Management Submitted: Complete:levothyroxine (levothyroxine 88 mcg (0.088 mg) oral tablet) Signed by LEVI TREJO DO 04/11/2024 07:35:00 EST Approved with modifications: levothyroxine (LEVOTHYROXINE 88 MCG TABLET) TAKE 1 TABLET BY MOUTH EVERY DAY Qty: 30 tab(s) Days Supply: 30 Refills: 5 Substitutions Allowed Route To Pharmacy - [facility]/pharmacy #[id number] From: [facility] [id number] To: LEVI TREJO DO Sent: April 07, 2024 11:42:32 PM MUTUAL FUND MANAGER Subject: Medication Management Due: April 08, 2024 12:08:33 AM MUTUAL FUND MANAGER On Hold Pending Signature Dispensed Drug: levothyroxine (levothyroxine 88 mcg (0.088 mg) oral tablet), TAKE 1 TABLET BY MOUTH EVERY DAY Quantity: 30 tab(s) Days Supply: 30 Refills: 5 Substitutions Allowed Notes from Pharmacy: OUTSIDE RECORDS Observed: 04/09/2024 3:03 PM Status: F Source: [facility] [id number]#1.00OTGTIFF OUTSIDE RECORDS Observed: 04/09/2024 3:02 PM Status: F Source: [facility] [id number]#1.00OTGTIFF MAGNESIUM Collected: 6:49 AM Status: F Source: [facility] TYPE CODE TESTS RESULT OUT OF RANGE REFERENCE UNITS LAB MG Magnesium 1.9 Normal 1.9-2.7 mg/dL Performed By: #### LIPID, HS TROP, MG #### [address] LIPID PANEL Collected: 04/09/2024 6:49 AM Status: F Source: [facility] TYPE CODE TESTS RESULT OUT OF RANGE REFERENCE UNITS LAB CHOL Cholesterol 101 Low 140-200 mg/dL Result Comment: Chol less th an 200 mg/dl low risk Chol 201-239 mg/dl borderline risk Chol 240 mg/dl and greater high risk LAB HDL HDL Cholesterol 26 Normal 23-92 mg/dL Result Comment: HDL CHOL ATP -III CLASSIFICATION Cardiovascular Risk HDL > or equal to 60 mg/dL LOW HDL < 40 mg/dL HIGH LAB TRIG W REF Triglyceride w/Reflex 75 Normal 0-149 mg/dL Result Comment: TRIG ATP III CLASSIFICATION TRIG less than 150 mg/dL Normal TRIG 150-199 mg/dL Borderline high TRIG 200-500 mg/dL High TRIG greater than 500 mg/dL Very high Standard traceable to the Center for Disease Conrtrol and Prevention (CDC) test method. LAB LDLC LDL Cholesterol,Calc ulated 60 Normal 0-100 mg/dL Result Comment: LDL ATP III CLASSIFICATION LDL less than 100 mg/dL Optimal LDL 100-129 mg/dL Near or above optimal LDL 130-159 mg/dL Borderline high LDL 160-189 mg/dL High LDL greater than 189 mg/dL Very high LAB VLDL VLDL CHOLESTEROL 15 mg/dL LAB CHLHDL Chol/HDL Ratio 3.9 <5.0 Result Comment: PERFORMED BY : [place] [id number] PATHOLOGIST ROTARY ENVELOPE MACHINE OPERATOR TOM VENEGAS M.D. Performed By: #### LIPID, HS TROP, MG #### [facility] [address] [place] [address] [place] TROPONIN I HIGH SENSITIVITY Collected: 04/09/2024 6:4 9 AM Status: F Source: [facility] TYPE CODE TESTS RESULT OUT OF RANGE REFERENCE UNITS LAB HS TROP Troponin I High Sensitivity 3.7 Normal 0.0-15.0 pg/mL Result Comment: PERFORMED BY : [place] [address] PATHOLOGIST ROTARY ENVELOPE MACHINE OPERATOR TOM VENEGAS M.D. Performed By: #### LIPID, HS TROP, MG #### [facility] [address] [place] [address] [place] TROPONIN I HIGH SENSITIVITY Collected: 04/09/2024 2:2 7 AM Status: F Source: [facility] TYPE CODE TESTS RESULT OUT OF RANGE REFERENCE UNITS LAB HS TROP Troponin I High Sensitivity 3.4 Normal 0.0-15.0 pg/mL Result Comment: PERFORMED BY : [place] [address] PATHOLOGIST ROTARY ENVELOPE MACHINE OPERATOR TOM VENEGAS M.D. Performed By: #### HS TROP # ### [facility] [address] [place] [address] [place] XR CHEST 1V PORTABLE Observed: 4 11:12 PM Status: COMPLETED Source: [facility] Main [address] [address] XRay Report Signed Patient: Eleonora Abel MR#: [id number] : 1970 Acct:[id number] Age/Sex: 53 / F ADM Date: 04/08/24 Loc: ER Room: Type: [facility] ER Attending Dr: Copies to: Trey Hernandez Jr, MD Ordering Provider: Trey Hernandez Jr, MD Date of Service: 04/08/24 XR/XR chest 1V portable: Chest Pain SINGLE VIEW CHEST CLINICAL HISTORY: Chest pain and congestion for 3 days. COMPARISON: None FINDINGS: Heart normal in size. Lungs are clear. No free air. XR/XR chest 1V portable IMPRESSION: NO ACUTE FINDINGS Impression dictated by: Alexis Pinto Jr., D.OJulio C04/08/2024 11:14 PM Dictation Location: [facility]-18 Transcribed By: [facility] 04/08/242313 Dictated By: Alexis Pinto Jr, DO 04/08/242311 Signed By: <Electronically signed by Alexis Pinto Jr, DO in OV> 04/08/242313 COMPREHENSIVE METABOLIC PANEL Collected: 04/08/2024 9 :39 PM Status: F Source: [facility] TYPE CODE TESTS RESULT OUT OF RANGE REFERENCE UNITS LAB GLU Glucose 105 High 70-100 mg/dL Result Comment: Random Gluco se Reference Range is dependent on time and content of last meal. Glucose of more than 200 mg/dL in a nonstressed, ambulatory subject supports the diagnosis of Diabetes Mellitus. ADA recommended reference range LAB BUN Blood Urea Nitrogen 12 Normal 7-25 mg/d L LAB CREATT Creatinine 0.76 Normal 0.60-1.20 mg/dL LAB GFReNR Estimated GFR >60.0 mL/Min LAB NA Sodium 136 Normal 136-145 mmol/L LAB K Potassium 4.0 Normal 3.5-5.1 mmol/L LAB CL Chloride 104 Normal 98-107 mmol/L LAB CO2 Carbon Dioxide 23.1 Normal 21.0-31.0 mmol/L LAB GAP Anion Gap 12.9 Normal 6.0-15.0 meq/L LAB CA Calcium 9.3 Normal 8.6-10.3 mg/dL LAB TP Total Protein 7.4 Normal 6.4-8.9 g/dL LAB ALB Albumin Level 4.1 Normal 3.5-5.7 g/dL LAB GLOB Globulin 3.3 g/dL LAB AGRATIO Albumin/Globulin Ratio 1.2 LAB BILIT Bilirubin,Total 0.4 Normal 0.3-1.0 mg/dL LAB AST Aspartate Amino Transferase 12 Low 13-39 U/L LAB ALT Alanine Aminotransferase 8 Normal 7-52 U/L LAB ALP Alkaline Phosphatase 107 High 34-104 U/L LAB CRCLPHA Creatinine Clr C alc Pharmacy 85.36 Result Comment: PERFORMED BY : [facility] [address] [place] [address] PATHOLOGIST ROTARY ENVELOPE MACHINE OPERATOR TOM VENEGAS M.D. Performed By: #### CMP #### [facility] [address] COMPLETE BLOOD COUNT AUTO DIFF Collected: 04/08/2024 9:39 PM Status: F Source: [facility] TYPE CODE TESTS RESULT OUT OF RANGE REFERENCE UNITS LAB WBC White Blood Count 11.7 High 3.8-11.6 10*3/uL LAB UNWBC Uncorrected WBC 11.7 High 3.8-11.6 10*3/uL LAB RBC Red Blood Count 4.56 Normal 3.60-5.00 10*6/u L LAB HGB Hemoglobin 13.1 Normal 11.8-15.4 g/dL LAB HCT Hematocrit 39.4 Normal 34.0-46.4 % LAB MCV Mean Corpuscular Volume 86.5 Normal 80-100 fL LAB MCH Mean Corpuscular Hemoglobin 28.8 Normal 24.7-34.3 pg LAB MCHC Mean Corpuscular HGB Conc 33.4 Normal 32.0-35.0 g/dL LAB RDW Red Cell Distribution Width 16.0 High 11.9-15.3 % LAB PLT Platelet Count 374 Normal 150-450 10*3/uL LAB MPV Mean Platelet Volume 7.6 Normal 6.3-10.7 fL LAB MDW Monocyte Distribution Width 19.08 Normal 0.00-20.00 % LAB NE% Neutrophils % (Auto) 72.1 . % LAB LY% Lymphocytes % (Auto) 20.3 . % LAB MO% Monocytes % (Auto) 7.0 . % LAB EO% Eosinophils % (Auto) 0.1 . % LAB BA% Basophils % (Auto) 0.5 . % LAB NRBC% NRBC% 0.0 Normal 0-0.5 /100{WBC } LAB NE# Neutrophils # (Auto) 8.4 High 1.8-7.7 10*3/uL LAB LY# Lymphocytes # (Auto) 2.4 Normal 1.00-4.8 10*3/uL LAB MO# Monocytes # (Auto) 0.8 Normal 0.0-0.8 10*3/uL LAB EO# Eosinophils # (Auto) 0.0 Normal 0.0-0.45 10*3/uL LAB BA# Basophils # (Auto) 0.1 Normal 0.0-0.2 10*3/uL Result Comment: PERFORMED BY : [place] [address] PATHOLOGIST ROTARY ENVELOPE MACHINE OPERATOR TOM VENEGAS M.D. Performed By: #### BNP, CK, CBC, PT, HS TROP #### [address] [address] [facility] PROTHROMBIN TIME INR Collected: 04/08/2024 9:39 PM S tatus: F Source: [facility] TYPE CODE TESTS RESULT OUT OF RANGE REFERENCE UNITS LAB R PT Prothrombin Time 12.5 Normal 9.0-12.9 s Result Comment: A hematocrit value greater than 55% may lead to inaccurate results in coagulation testing. Patients having hematocrit values >55% require a special collection tube for coagulation studies. Please contact the laboratory at [phone] for redraw instructions. LAB INR INR 1.1 Result Comment: INR Therapeu tic Range A) Pre- and Peroperative OAT started two weeks before surgery. NOT HIP SURGERY: 1.5 - 2.5 HIP SURGERY: 2 - 3 B) Primary and secondary prevention of venous THROMBOSIS: 2 - 3 C) Active venous thrombosis, pulmonary embolism and prevention of recurrent venous thrombosis: 2 - 3 D) Prevention of arterial thromboembolism including patients with mechanical heart valves: 3 - 4.5 PERFORMED BY: [place] [address] PATHOLOGIST ROTARY ENVELOPE MACHINE OPERATOR TOM VENEGAS M.D. Performed By: #### BNP, CK, CBC, PT, HS TROP #### [place] [id number] [facility] B-TYPE NATRIURETIC PEPTIDE Collected: 04/08/2024 9:39 PM Status: F Source: [facility] TYPE CODE TESTS RESULT OUT OF RANGE REFERENCE UNITS LAB BNP B-Type Natriuretic Peptide 31.0 Normal 5-100 pg/mL Result Comment: PERFORMED BY : [place] [id number] PATHOLOGIST ROTARY ENVELOPE MACHINE OPERATOR TOM VENEGAS M.D. Performed By: #### BNP, CK, CBC, PT, HS TROP #### [place] [id number] [facility] CREATINE KINASE Collected: 04/08/2024 9:39 PM Status : F Source: [facility] TYPE CODE TESTS RESULT OUT OF RANGE REFERENCE UNITS LAB CK Creatine Kinase 52 Normal 30-223 U/L Performed By: #### BNP, CK, CBC, PT, HS TROP #### [place] [id number] [facility] TROPONIN I HIGH SENSITIVITY Collected: 04/08/2024 9:3 9 PM Status: F Source: [facility] TYPE CODE TESTS RESULT OUT OF RANGE REFERENCE UNITS LAB HS TROP Troponin I High Sensitivity 4.1 Normal 0.0-15.0 pg/mL Result Comment: PERFORMED BY : [place] [id number] PATHOLOGIST ROTARY ENVELOPE MACHINE OPERATOR TOM VENEGAS M.D. Performed By: #### BNP, CK, CBC, PT, HS TROP #### [place] [id number] [facility] ECG 12 LEAD ECG Observed: 04/08/2024 9:17 PM Status: COMPLETED Source: [facility] Main [address] [address] Electrocardiograph Report Signed Patient: Eleonora Abel MR#: [id number] 1072 : 1970 Acct:[id number] Age/Sex: 53 / F ADM Date: 04/09/24 Loc: Room: [address] [place] [address] Type: DIS INOo Attending Dr: Chiqui Bar MD Ordering Provider: Trey Hernandez Jr, MD Date of Service: 04/08/24 ECG/ECG 12 lead ECG: chest pain Copies to: Test Reason : Blood Pressure : */* mmHG Vent. Rate : 72 BPM Atrial Rate : 72 BPM P-R Int : 104 ms QRS Dur : 94 ms QT Int : 372 ms P-R-T Axes : 69 81 -4 degrees QTcB Int : 407 ms Sinus rhythm with sinus arrhythmia with short PA Abnormal QRS-T angle, consider primary T wave abnormality Abnormal ECG When compared with ECG of 11-Nov-2019 07:47, ST no longer depressed in Anterior leads T wave inversion now evident in Inferior leads T wave inversion no longer evident in Anterolateral leads QT has shortened Confirmed by TREY HERNANDEZ MD ([id number]) on 04/10/2024 5:45:42 AM Referred By: Electronically Signed By: TREY HERNANDEZ MD Transcribed By: MUS Signed By Trey Hernandez Jr, MD 0545 ALLERGIES DATE TYPE / CODE NAME / CODE REACTION SEVERITY SOURCE 08/04/2024 Drug Allergy/416 135744(SNOM ED CT) Penicillins/R56729 0476(RXNORM) Rash Unknown [facility] 08/04/2024 Drug Allergy/416 194276(SNOM ED CT) house dust/[id number](RX NORM) Unknown Reaction Unknown [facility] 08/04/2024 Drug Allergy/416 678246(SNOM ED CT) wheat/[id number](R XNORM) Unknown Reaction Moderate (Severity Modifier) (Qualifier Value) [facility] 06/04/2023 Drug Class/05838 1003(SNOMED CT) BETA-BLOCKERS (BETA-ADRENERGIC BLOCKING AGTS) Shortness of breath High [facility] 06/04/2023 DRUG INGREDI/419 751914(SNOM ED CT) VARENICLINE Other [facility] 03/17/2023 Drug Class/07546 1003(SNOMED CT) PENICILLINS Unknown [facility] Drug/483788 003(SNOMED CT) penicillin Unknown [facility] ENCOUNTERS ADMIT/DISCHARGE ACCOUNT NUMBER ADMITTING ENCOUNTER CLASS LOCATION SOURCE 02/06/2025 [id number] Priscilla Rubin [facility]/26/2025/01/27/20 [id number] Ambulatory [facility] ClinicBuildi ng: [facility] ClinicRoom: [facility] Room 1 [facility] 11/08/2024/11/09/19 [id number] Ambulatory [facility] ClinicBuildi ng: [facility] Clinic [facility] 08/04/2024/08/05/19 [id number] [facility] 07/28/2024 [id number] DO LEVI TREJO Ambulatory [facility] HospitalBuil ding: LAB [facility] 07/28/2024/07/29/19 25 [id number] MATHIEU CHUNG Ambulatory [facility] HospitalBuil ding:[facility] 07/26/2024 [id number] Ambulatory [facility] ClinicBuildi ng: [facility] ClinicRoom: [facility] Room 3 [facility] 07/11/2024/07/12/19 [id number] Ambulatory Building:[address] Ambulatory 07/06/2024 [id number] Ambulatory [facility] ClinicBuildi ng: [facility] ClinicRoom: [facility] Room 2 [facility] 07/05/2024/07/05/19 [id number] Ambulatory Building:[address] 07/05/2024/07/05/19 25 [id number] Ambulatory Building:[address] 07/05/2024/07/05/19 25 [id number] Ambulatory Building:[address] 07/05/2024/07/05/19 25 [id number] Ambulatory Building:[address] 07/05/2024/07/05/19 25 [id number] Ambulatory Building:[address] 06/21/2024/06/21/19 [id number] Ambulatory Building:FNR IMG [facility] 06/21/2024/06/21/19 25 [id number] Ambulatory Building:CIE NT [facility] 06/06/2024/06/06/19 [id number] Ambulatory Building:[facility] [address] Ambulatory 06/03/2024 [id number] Sylwia Duggan Ambulatory FTBuilding :FT [facility] 06/03/2024/06/03/19 [id number] Sylwia Duggan Ambulatory [facility] :FT [facility] 04/19/2024 [id number] Ambulatory [facility] ClinicBuildi ng: OF[facility] Clinic [facility] 04/09/2024/04/09/20 [id number] Hanna Babb [facility]: [id number]: 1 [facility] 03/07/2024/03/07/20 [id number] Ambulatory [facility] ClinicBuildi ng: [facility] ClinicRoom: [facility] Room 2 [facility] 10/14/2023/10/14/19 24 [id number] Ambulatory [facility] ClinicBuildi ng: [facility] ClinicRoom: [facility] Room 1 [facility] 08/10/2023/08/10/19 24 [id number] Ambulatory [facility] ClinicBuildi ng: OFC Clinic [facility] PAYERS ENCOUNTER GUARANTOR PAYER SUBSCRIBER SOURCE 02/06/2025 Eleonora [address] [place] [address]Wwd: () [place] [facility] MedicaidPolicy Number: [id number] Date:[id number] [address]NP: Eleonora Hernandez: [id number] [place] [address]Ngs: () [facility] 02/06/2025 Secondary Insurance:Self PayPolicy Number: Effective Date:2025-02-06 [facility]25 ELEONORA HERNANDEZ: [place], [place] [address]Zsu: (HP) Primary Insurance:CARESOURCEPo licy Number: [id number] Date:6931-29-13Kyzt Name:Medicaid [address], [place] [address]ZR: ELEONORA ABELDOB: [id number] [place], [place] [address]Dfj: (HP) [facility] 11/08/2024 ELEONORA ABELDOB: [place], [place] [address]Azy: (HP) Primary Insurance:CARESOURCEPo licy Number: [id number] Date:[id number] Name:Medicaid [address], [place] [address]CD: ELEONORA ABELB: [id number] [place] [address]Wbi: (HP) [facility] 08/04/2024 Eleonora Cheng [address] [address]Rhr: (HP) Primary Insurance:[employer] MedicaidPolicy Number: [id number] Date:4172-88-52Qmv[address] [address]DS: Eleonora AbelDOB: [id number] [place] [address]Qtn: (HP) [facility] 08/04/2024 Secondary Insurance:Self PayPolicy Number: Effective Date:2024-08-04 [facility] ELEONORA RODRIGUEZB: [place], [place] [address]Dml: (HP) [place] Number: [id number] Date:0553-17-00Mime Name:[place] [address]AR: ELEONORA ABELDOB: [id number] [place], [place] [address]Bnu: (HP) (WP) [facility] 07/28/2024 ELEONORA ABELDOB: [place], [place] [address]Ohh: (HP) [place] Insurance[place] Number: [id number] Date:1401-60-92Cijk Name:[place] [address]TF: ELEONORA ABELDOB: [id number] [place], [place] [address]Umq: (HP) () [facility] 07/26/2024 ELEONORA ABELDOB: [place], [place] [address]Zfu: (HP) [place] Insurance:[place]ICA[place]Policy Number: [id number] Date:2369-87-72Ptaf Name:[place] [address]LJ: ELEONORA ABELDOB: [id number] [place], [place] [address]Jao: (HP) [facility] 07/11/2024 ELEONORA ABELDOB: [place], [place] [address]Yff: (HP) Primary Insurance:CARESOURCEPo licy Number: [id number] Date:2015-08-10 ELEONORA ABELDOB: [id number] [place], [place] [address]Cjh: (HP) [facility] 07/06/2024 ELEONORA ABELDOB: [place], [place] [address]Iia: () Primary Insurance:[place] Number: [id number] Date:0442-08-12Cntt Name:[place] [address]DI: ELEONORA NEWMANTYDOB: [id number] [place], [place] [address]Zmg: (HP) [facility] 07/05/2024 ELEONORA NEWMANTYDOB: [place], [place] [address]Yqd: () Primary Insurance:CARESOURCEPo licy Number: [id number] Date:2015-08-10 ELEONORA ABELDOB: [id number] [place], [place] [address]Ucl: () [facility] 07/05/2024 ELEONORA NEWMANTYDOB: [place], [place] [address]Dgl: () Primary Insurance:CARESOURCEPo licy Number: [id number] Date:2015-08-10 ELEONORA NEWMANTYDOB: [id number] [place], [place] [address]Yqf: () [facility] 07/05/2024 ELEONORA NEWMANTYDOB: [place], [place] [address]Pkx: () Primary Insurance:CARESOURCEPo licy Number: [id number] Date:2015-08-10 ELEONORA ABELDOB: [id number] [place], [place] [address]Dty: (HP) [facility] 07/05/2024 ELEONORA ABELDOB: [place], [place] [address]Owc: (HP) Primary Insurance:CARESOURCEPo licy Number: [id number] Date:2015-08-10 ELEONORA NEWMANTYDOB: [id number] [place], [place] [address]Ruk: (HP) [facility] 07/05/2024 ELEONORA NEWMANTYDOB: [place], [place] [address]Guk: (HP) Primary Insurance:CARESOURCEPo licy Number: [id number] Date:2015-08-10 ELEONORA ABELDOB: [id number] [place], [place] [address]Kcl: (HP) [facility] 06/21/2024 ELEONORA ABELDOB: [place] [address]Vqv: (HP) Primary Insurance:[employer] MEDICAIDPolicy Number: [id number] Date:2024-05-11 ELEONORA ABELDOB: [id number] [place] [address] [facility] 06/21/2024 ELEONORA ABELDOB: [place] [address]Fan: (HP) Primary Insurance:[employer] MEDICAIDPolicy Number: [id number] Date:2024-05-11 ELEONORA ABELDOB: [id number] [place] [address] [facility] 06/06/2024 ELEONORA NEWMANTYDOB: [place], [place] [address]Swr: (HP) Primary Insurance:CARESOURCEPo licy Number: [id number] Date:2024-03-11 ELEONORA ABELDOB: [id number] [place], [place] [address]Iuv: () [facility] 06/03/2024 ELEONORA ABELDOB: [address]UR[address] STTel: (HP) Primary Insurance:CARESOURCEPo licy Number: [id number] Date:4855-37-68LF[address] [address]QX: ELEONORA [facility]/2024 ELEONORA ABELDOB: [facility] DOWNTOWNTel: () Primary Insurance:CARESOURCEPo licy Number: [id number] Date:9628-87-87FJ[address] [address]VB: ELEONORARandall [facility]Mer[facility] 04/[facility]/2024 ELEONORA RODRIGUEZB: [place], [place] [address]Cew: () Primary Insurance:MEDICAID [place]Policy Number: [id number] Date:6987-34-13Eren Name:[address] [address]GN: ELEONORA ABELDOB: [id number] [place], [place] [address]Fgl: () [facility] 03/07/2024 ELEONORA ABELDOB: [place], [place] [address]Qem: () Primary Insurance:[facility]ID [facility] ODMPolicy Number: [id number] Date:5509-61-07Nxss Name:Medicaid [address], [place] [address]BZ: ELEONORA ABELDOB: [id number] [place], [place] [address]Wfz: () [facility] 10/14/2023 ELEONORA ABELDOB: [place], [place] [address]Lcv: () Primary Insurance:SELF PAYPolicy Number: Effective Date:5332-89-18Wkkx Name:Self Pay ELEONORA ABELB: [id number] [place], [place] [address]Wvr: () [facility] 08/10/2023 ELEONORA ABELDOB: [place], [place] [address]Jnk: () Primary Insurance:CARESOURCEPo licy Number: [id number] Date:3222-69-41Uthj Name:Medicaid [address] [place] [address]UT: ELEONORA ABELB: [id number] [place], [place] [address]Wff: () [facility]
== END 2025-02-06 10:09 | disposition home or self-care (01) ==
LOC: CT 10:09
PROVIDERS: PCP Family Medicine; Visit Provider Family Medicine
DX: J32.9 Chronic sinusitis, unspecified (principal)
CPT/HCPCS: 70486